=== PATIENT | male | born 1950 | race Caucasian/White ===

== ENCOUNTER 2017-10-20 11:35 | Inpatient (IN) | payer SELFPAY ==
[~2017-10-20 11:35] MED LIST: chlordiazePOXIDE HCL 25 MG CAPSULE PO SCH
[2017-10-20] MEDS ORDERED: FOLIC ACID INJECTION - 1 MG, THIAMINE HCL 100 MG, MULTIVIT INJECTION ADULT 10 ML in SOD... IVPB ONE (13:06)
[2017-10-20 13:17] LABS: BASO % 0.5 % (0-2.0); EOS % 0.1 % (0-4.5); HEMATOCRIT 40.8 % (35.4-49); HEMOGLOBIN 14.2 GM/dL (11.7-16.9); LYMPH % 13.3 % (8-40); MCH 31.5 pg (25.7-33.7); MCHC 34.9 g/dl (32.0-35.9); MEAN CELL VOLUME 90.2 fl (80-96); MEAN PLT VOLUME 7.6 fl (7.5-11.1); MONO % 7.1 % (3.8-10.2); PLATELET COUNT 135 K/MM3 (134-434); RBC 4.52 M/mm3 (4.00-5.60); RDW 13.5 % (11.9-15.9)
[2017-10-20 13:21] LABS: URINE APPEARANCE CLEAR; URINE BILIRUBIN NEGATIVE (<2.0 mg/dL); URINE COLOR LTYELLOW; URINE GLUCOSE (UA) NEGATIVE (NEGATIVE); URINE KETONE TRACE (NEGATIVE); URINE LEUK ESTERASE NEGATIVE (NEGATIVE); URINE NITRITE NEGATIVE (NEGATIVE); URINE PROTEIN NEGATIVE (NEGATIVE); URINE UROBILINOGEN 4.0 E.U/dl mg/dL (0.2-1.0)
--- NOTE | 2017-10-20 13:30 | PDOC ---
History of Present Illness - General Chief Complaint: Alcohol intoxication Stated Complaint: INTOXIC Time Seen by Provider: 10/20/17 11:52 History Source: Patient, Family (daughter), Spouse Exam Limitations: Intoxication - History of Present Illness Initial Comments: 67yo M with PMH of Afib presenting to the ED after being found down by his this morning. His reports that he was down on the ground for at least two and a half hours. Patient does not recall how he fell and there were no witnesses to the event. He reports that he drank 8 beers between 10pm and 2: 30pm. His daughter reports that the patient has displayed intermittent episodes of not acting like himself over the past couple months and is not currently at his baseline. The patient has not taken his home medications for about one month because he does not like the side effects and that they dont do anything for him. His daughter also expressed concerned for the patients alcohol consumption. Patient denies fever, chills, SOB, chest pain, nausea, vomiting, or suicidal ideation. 10/20/17 13:54 Past History - Past Medical History Allergies/Adverse Reactions: Allergies Allergy/AdvReac Type Severity Reaction Status Date / Time No Known Allergies Allergy Verified 10/20/17 11:53 Home Medications: Ambulatory Orders Apixaban [Eliquis -] 5 mg PO DAILY 10/20/17 Metoprolol Succinate 100 mg PO BID 10/20/17 Cardiac Disorders: Yes (A-FIB) COPD: No - Suicide/Smoking/Psychosocial Hx Smoking History: Former smoker Have you smoked in the past 12 months: No If you are a former smoker, when did you quit?: 2016 Information on smoking cessation initiated: No Hx Alcohol Use: Yes Review of Systems - Review of Systems Constitutional: No: Chills, Fever Respiratory: No: Cough, Shortness of Breath Cardiac (ROS): No: Chest Pain ABD/GI: No: Diarrhea, Vomiting *Physical Exam - Vital Signs Last Vital Signs Temp Pulse Resp BP Pulse Ox 98.2 F 127 H 18 132/98 96 10/20/17 11:52 10/20/17 11:52 10/20/17 11:52 10/20/17 11:52 10/20/17 11:52 - Physical Exam General Appearance: Yes: Alcohol on Breath HEENT: positive: EOMI, TAMAR, Pharynx Normal, Lesions (superficial facial abrasions on forehead and above right eye) Neck: positive: Trachea midline, Supple Respiratory/Chest: positive: Lungs Clear, Normal Breath Sounds Cardiovascular: positive: Regular Rhythm, Regular Rate, S1, S2 Gastrointestinal/Abdominal: positive: Normal Bowel Sounds, Soft Extremity: positive: Other (superficial abrasion on knee with some bruising) Integumentary: positive: Normal Color, Dry, Warm Neurologic: positive: negative assembler II-XII NML intact (able to complete [id number] coordination with some difficulty), Motor Strength 5/5. negative: Sensory Deficit ED Treatment Course - LABORATORY CBC & Chemistry Diagram: 10/20/17 13:00 10/20/17 13:00 - ADDITIONAL ORDERS Additional order review: 10/20/17 13:00 RBC 4.52 MCV 90.2 MCHC 34.9 RDW 13.5 MPV 7.6 Neutrophils % 79.0 Lymphocytes % 13.3 Monocytes % 7.1 Eosinophils % 0.1 Basophils % 0.5 Medical Decision Making - Medical Decision Making Assessing patient for altered mental status. History includes fall and intoxication. Patient fell and suffered abrasions on his face, daughter reports that patient is not himself." CT ordered to rule out neurological process. Ordered labs to assess for infection, metabolic abnormality, rule out rhabdomyolysis. 10/20/17 14:10 Vital Signs Temp Pulse Resp BP Pulse Ox 98.2 F 127 H 24 135/87 96 10/20/17 11:52 10/20/17 13:20 10/20/17 13:20 10/20/17 13:20 10/20/17 13:20 EKG shows AFib with RVR 10/20/17 14:48 Patient given home dose of metoprolol for rate control, HR down to [address] head, face does not show evidence of trauma. AST 138, ALT 92 consistent with chronic alcoholism, CK elevated to 733 but not concerning for rhabdomyolosis. Alcohol level elevated, consistent with history. Ammonia normal. Concern for patient not on medications for one month. Recommend admission for rapid Afib, in order to titrate medications and perform ECHO. \\ Laboratory Tests 10/20/17 10/20/17 10/20/17 13:00 13:00 13:00 WBC 7.0 RBC 4.52 Hgb 14.2 Hct 40.8 MCV 90.2 MCH 31.5 MCHC 34.9 RDW 13.5 Plt Count 135 MPV 7.6 Absolute Neuts (auto) 5.5 Neutrophils % 79.0 Lymphocytes % 13.3 Monocytes % 7.1 Eosinophils % 0.1 Basophils % 0.5 Nucleated RBC % 0 Sodium Cancelled 135 L Potassium Cancelled 4.1 Chloride Cancelled 96 L Carbon Dioxide Cancelled 25 Anion Gap Cancelled 14 BUN Cancelled 4 L Creatinine Cancelled 0.6 L Creat Clearance w eGFR Cancelled > 60 Random Glucose Cancelled 72 L Calcium Cancelled 8.3 L Total Bilirubin Cancelled 1.3 H AST Cancelled 138 H ALT Cancelled 92 H Alkaline Phosphatase Cancelled 121 H Ammonia Creatine Kinase 733 H Creatine Kinase Index 2.3 CK-MB (CK-2) 17.20 H Troponin I 0.02 Total Protein Cancelled 6.5 Albumin Cancelled 3.7 Urine Color Urine Appearance Urine pH Ur Specific [place] Urine Protein Urine Glucose (UA) Urine Ketones Urine Blood Urine Nitrite Urine Bilirubin Urine Urobilinogen Ur Leukocyte Esterase Urine WBC (Auto) Urine RBC (Auto) Hyaline Casts Opiates Screen Methadone Screen Barbiturate Screen Phencyclidine Screen Ur Amphetamines Screen MDMA (Ecstasy) Screen Benzodiazepines Screen Cocaine Screen U Marijuana (THC) Screen Alcohol, Quantitative 10/20/17 10/20/17 10/20/17 13:00 13:03 13:06 WBC RBC Hgb Hct MCV MCH MCHC RDW Plt Count MPV Absolute Neuts (auto) Neutrophils % Lymphocytes % Monocytes % Eosinophils % Basophils % Nucleated RBC % Sodium Potassium Chloride Carbon Dioxide Anion Gap BUN Creatinine Creat Clearance w eGFR Random Glucose Calcium Total Bilirubin AST ALT Alkaline Phosphatase Ammonia Cancelled Creatine Kinase Creatine Kinase Index CK-MB (CK-2) Troponin I Total Protein Albumin Urine Color Ltyellow Urine Appearance Clear Urine pH 6.0 Ur Specific [place] 1.005 Urine Protein Negative Urine Glucose (UA) Negative Urine Ketones Trace H Urine Blood 1+ H Urine Nitrite Negative Urine Bilirubin Negative Urine Urobilinogen 4.0 e.u/dl Ur Leukocyte Esterase Negative Urine WBC (Auto) <1 Urine RBC (Auto) 1 Hyaline Casts 3 Opiates Screen Methadone Screen Barbiturate Screen Phencyclidine Screen Ur Amphetamines Screen MDMA (Ecstasy) Screen Benzodiazepines Screen Cocaine Screen U Marijuana (THC) Screen Alcohol, Quantitative 144.54 H* 10/20/17 10/20/17 13:06 14:41 WBC RBC Hgb Hct MCV MCH MCHC RDW Plt Count MPV Absolute Neuts (auto) Neutrophils % Lymphocytes % Monocytes % Eosinophils % Basophils % Nucleated RBC % Sodium Potassium Chloride Carbon Dioxide Anion Gap BUN Creatinine Creat Clearance w eGFR Random Glucose Calcium Total Bilirubin AST ALT Alkaline Phosphatase Ammonia 20.19 Creatine Kinase Creatine Kinase Index CK-MB (CK-2) Troponin I Total Protein Albumin Urine Color Urine Appearance Urine pH Ur Specific [place] Urine Protein Urine Glucose (UA) Urine Ketones Urine Blood Urine Nitrite Urine Bilirubin Urine Urobilinogen Ur Leukocyte Esterase Urine WBC (Auto) Urine RBC (Auto) Hyaline Casts Opiates Screen Negative Methadone Screen Negative Barbiturate Screen Negative Phencyclidine Screen Negative Ur Amphetamines Screen Negative MDMA (Ecstasy) Screen Negative Benzodiazepines Screen Negative Cocaine Screen Negative U Marijuana (THC) Screen Negative Alcohol, Quantitative 10/20/17 15:37 Patient and family amenable to plan for admission. Spoke with admitting internal medicine team. Vital Signs Temperature 98.2 F 10/20/17 11:52 Pulse Rate 116 H 10/20/17 15:50 Respiratory Rate 20 10/20/17 15:50 Blood Pressure 151/98 10/20/17 15:50 O2 Sat by Pulse Oximetry (%) 98 10/20/17 15:51 10/20/17 16:13 *DC/Admit/Observation/Transfer Diagnosis at time of Disposition: Atrial fibrillation with RVR - Discharge Dispostion Condition at time of disposition: Guarded Decision to Admit order: Yes - Referrals - Patient Instructions - Post Discharge Activity
[2017-10-20 13:32] LABS: COCAINE, UR NEGATIVE ng/ml (CUTOFF=300); OPIATES, URI NEGATIVE ng/ml (CUTOFF=300); PHENCYCLIDINE,URINE NEGATIVE ng/ml (CUTOFF=25); URINE AMPHETAMINES NEGATIVE ng/ml (CUTOFF=500); URINE BARBITURATES NEGATIVE ng/ml (CUTOFF=200); URINE BENZODIAZEPINES NEGATIVE ng/ml (CUTOFF=200)
[2017-10-20 13:33] LABS: METHADONE, UR NEGATIVE ng/ml (CUTOFF=300)
[2017-10-20 13:49] LABS: URINE HYALINE CAST 3 /lpf
[2017-10-20] MEDS ORDERED: METOPROLOL TARTRATE 50 MG TABLET (FP) ONE (13:53)
[2017-10-20] MEDS ORDERED: DIPHTH,PERTUSS(ACELL),TET 0.5 ML DISP.SYRIN IM ONE (14:18)
--- NOTE | 2017-10-20 14:22 | PDOC ---
Attending Attestation - Resident Resident Name: Abbey Schmitt - ED Attending Attestation I have performed the following: I have examined & evaluated the patient, The case was reviewed & discussed with the resident, I agree w/resident's findings & plan, Exceptions are as noted - HPI HPI: 10/20/17 14:15 "The patient is a 67-year-old male, with a past medical history of a-fib on metoprolol and apixaban, who presents to the ED via EMS with alcohol intoxication. As per , the patient was found lying on the ground this morning. She believes that he could have been down for about 2.5 hours. Pt has no recollection of falling but states he drank approximately 10 beers between 10PM last night and 2:30AM. Daughter and mother were unable to lift pt from floor and called EMS. The family is concerned about the patients recent excessive drinking, however the patient does not feel like his drinking is an issue. Pt also states that he has not been taking any of his medications because he has been having side effects like bruising and GI upset. The patient denies any fever, chills, nausea, vomiting, diarrhea, or abdominal pain. Denies LUQUE/neck pain. Denies any chest pain or shortness of breath. Allergies: NKA " - Physicial Exam PE: 10/20/17 14:18 "GENERAL: Awake, alert, and fully oriented, in no acute distress. HEAD: + abrasions to forehead and nose with no lacerations EYES: PERRLA, EOMI, sclera anicteric, conjunctiva clear ENT: Auricles normal inspection, hearing grossly normal, nares patent, oropharynx clear without exudates. Moist mucosa NECK: Nontender, no stepoffs, Normal ROM, supple, no lymphadenopathy, JVD, or masses LUNGS: Breath sounds equal, clear to auscultation bilaterally. No wheezes, and no crackles HEART: Regular rate and rhythm, normal S1 and S2, no murmurs, rubs or gallops ABDOMEN: Soft, nontender, normoactive bowel sounds. No guarding, no rebound. No masses EXTREMITIES: + abrasions to b/l knees, no bony tenderness, Normal range of motion, no edema. No clubbing or cyanosis. No cords, erythema, or tenderness NEUROLOGICAL: Cranial nerves II through XII intact. 5/5 strength and sensation in all extremities, Normal speech, normal gait, normal cerebellar function SKIN: Warm, Dry, normal turgor, no rashes or lesions noted. " - Medical Decision Making 10/20/17 14:22 67 M who presents to ED after falling while intoxicated. Pt also found to be tachycardic and in rapid afib, likely 2/2 medication noncompliance. Will evaluate for infectious process with CXR and UA, as well as metabolic derangement. - Labs - UA, CXR - CT head/facial bones/c-spine - Tdap 10/20/17 15:50 CTs unremarkable Pt given home dose metoprolol 100mg PO with improvement in HR to 110s. Additional metoprolol 5mg IV ordered Will admit for further rate control and titration of metoprolol, as well as resumption of anticoagulation and possible echo to evaluate for thrombus Pt admitted to tele obs
[2017-10-20 14:50] LABS: ALBUMIN 3.7 g/dl (3.4-5.0); ANION GAP 14 (8-16); BILIRUBIN,TOTAL 1.3 mg/dL (0.2-1.0); BLOOD UREA NITROGEN 4 mg/dL (7-18); CALCIUM 8.3 mg/dL (8.5-10.1); CHLORIDE 96 mmol/L (98-107); CO2 25 mmol/L (21-32); CREATININE 0.6 mg/dL (0.7-1.3); GLUCOSE,RANDOM 72 mg/dL (74-106); POTASSIUM 4.1 mmol/L (3.5-5.1); SGOT/AST 138 U/L (15-37); SGPT/ALT 92 U/L (12-78); SODIUM 135 mmol/L (136-145); TOT PROT 6.5 g/dl (6.4-8.2)
[2017-10-20 14:52] LABS: ALK PHOS 121 U/L (45-117)
[2017-10-20] MEDS ORDERED: METOPROLOL TARTRATE 5 MG/5 ML VIAL IVPUSH ONE (15:42)
[2017-10-20] MEDS ORDERED: METOPROLOL TARTRATE 5 MG/5 ML VIAL ONE (15:46)
--- NOTE | 2017-10-20 18:27 | HP ---
CHIEF COMPLAINT: "intoxication" PCP: Dr. Salazar HISTORY OF PRESENT ILLNESS: Patient is a 67 y/o male with a past medical history of afib, HLD, and HTN, who presents with intoxication. Patient states he was home alone for a few days and was drinking a lot of alcohol. This morning his found him down on the floor. Per patient he thinks he was walking backwards from the tv and fell on to the carpet where he got some friction kramer and bruises. Patient was inebriated at the time. He reports he has stopped taking his medications for the last month because he reports he did not like the side effects. Patient denies any chest pain, headache, SOB, blurry vision, dizziness. Patient has no complaints at this time. ER course was notable for: (1)EKG (2) (3) PAST MEDICAL HISTORY: afib, HLD PAST SURGICAL HISTORY: NA Social History: Smoking: no Alcohol: 5 beers a day CAGE (+1) Drugs: no Family History: Allergies No Known Allergies Allergy (Verified 10/20/17 11:53) HOME MEDICATIONS: Home Medications Medication Instructions Recorded Apixaban [Eliquis -] 5 mg PO DAILY 10/20/17 Metoprolol Succinate 100 mg PO BID 10/20/17 REVIEW OF SYSTEMS CONSTITUTIONAL: Absent: fever, chills, diaphoresis, generalized weakness CARDIOVASCULAR: irregular heart rate Absent: chest pain, syncope, palpitations, lightheadedness, peripheral edema RESPIRATORY: Absent: cough, shortness of breath, dyspnea with exertion, GASTROINTESTINAL: Absent: abdominal pain, abdominal distension, nausea, vomiting, diarrhea, constipation GENITOURINARY: Absent: dysuria, frequency, MUSCULOSKELETAL: Absent: myalgia, arthralgia back pain, neck pain SKIN: ecchymoses Absent: rash, itching, pallor HEMATOLOGIC/IMMUNOLOGIC: easy bruising Absent: easy bleeding, lymphadenopathy, frequent infections ENDOCRINE: Absent: unexplained weight gain, unexplained weight loss NEUROLOGIC: Absent: headache, focal weakness or paresthesias, dizziness, unsteady gait, seizure, mental status changes PSYCHIATRIC: Absent: anxiety, depression PHYSICAL EXAMINATION Vital Signs - 24 hr 10/20/17 10/20/17 10/20/17 11:52 13:20 15:50 Temperature 98.2 F Pulse Rate 127 H Pulse Rate [ 127 H 116 H Apical] Respiratory 18 24 20 Rate Blood Pressure 132/98 151/98 Blood Pressure 135/87 151/98 [Left Arm] O2 Sat by Pulse 96 96 97 Oximetry (%) 10/20/17 15:51 Temperature Pulse Rate Pulse Rate [ Apical] Respiratory Rate Blood Pressure Blood Pressure [Left Arm] O2 Sat by Pulse 98 Oximetry (%) GENERAL: Awake, alert, and fully oriented, inebriated HEAD:Eccymoses to lateral side of left face EYES: Pupils equal, round and reactive to light, extraocular movements intact, sclera anicteric, conjunctiva clear. EARS, NOSE, THROAT: Ears normal, nares patent, oropharynx clear without exudates. Moist mucous membranes. NECK: Normal range of motion LUNGS: Breath sounds equal, clear to auscultation bilaterally HEART: irregularly irregular rhytm, tachycardic ABDOMEN: Soft, nontender, not distended, normoactive bowel sounds MUSCULOSKELETAL: Normal range of motion at all joints. UPPER EXTREMITIES: 2+ pulses, warm, well-perfused. No cyanosis. No clubbing. No peripheral edema. LOWER EXTREMITIES: 2+ pulses, warm, well-perfused. No calf tenderness. No peripheral edema. NEUROLOGICAL: Cranial nerves II-XII intact. Normal speech. PSYCHIATRIC: Cooperative. Good eye contact. Inebriated SKIN: Warm, dry, normal turgor, large 5x5 cm eccymoses to left knee, few eccymoses 1x1 cm to left arm Laboratory Results - last 24 hr 10/20/17 10/20/17 10/20/17 13:00 13:00 13:00 WBC 7.0 RBC 4.52 Hgb 14.2 Hct 40.8 MCV 90.2 MCH 31.5 MCHC 34.9 RDW 13.5 Plt Count 135 MPV 7.6 Absolute Neuts (auto) 5.5 Neutrophils % 79.0 Lymphocytes % 13.3 Monocytes % 7.1 Eosinophils % 0.1 Basophils % 0.5 Nucleated RBC % 0 Sodium Cancelled 135 L Potassium Cancelled 4.1 Chloride Cancelled 96 L Carbon Dioxide Cancelled 25 Anion Gap Cancelled 14 BUN Cancelled 4 L Creatinine Cancelled 0.6 L Creat Clearance w eGFR Cancelled > 60 Random Glucose Cancelled 72 L Calcium Cancelled 8.3 L Total Bilirubin Cancelled 1.3 H AST Cancelled 138 H ALT Cancelled 92 H Alkaline Phosphatase Cancelled 121 H Ammonia Creatine Kinase 733 H Creatine Kinase Index 2.3 CK-MB (CK-2) 17.20 H Troponin I 0.02 Total Protein Cancelled 6.5 Albumin Cancelled 3.7 Urine Color Urine Appearance Urine pH Ur Specific [place] Urine Protein Urine Glucose (UA) Urine Ketones Urine Blood Urine Nitrite Urine Bilirubin Urine Urobilinogen Ur Leukocyte Esterase Urine WBC (Auto) Urine RBC (Auto) Hyaline Casts Opiates Screen Methadone Screen Barbiturate Screen Phencyclidine Screen Ur Amphetamines Screen MDMA (Ecstasy) Screen Benzodiazepines Screen Cocaine Screen U Marijuana (THC) Screen Alcohol, Quantitative 10/20/17 10/20/17 10/20/17 13:00 13:03 13:06 WBC RBC Hgb Hct MCV MCH MCHC RDW Plt Count MPV Absolute Neuts (auto) Neutrophils % Lymphocytes % Monocytes % Eosinophils % Basophils % Nucleated RBC % Sodium Potassium Chloride Carbon Dioxide Anion Gap BUN Creatinine Creat Clearance w eGFR Random Glucose Calcium Total Bilirubin AST ALT Alkaline Phosphatase Ammonia Cancelled Creatine Kinase Creatine Kinase Index CK-MB (CK-2) Troponin I Total Protein Albumin Urine Color Ltyellow Urine Appearance Clear Urine pH 6.0 Ur Specific [place] 1.005 Urine Protein Negative Urine Glucose (UA) Negative Urine Ketones Trace H Urine Blood 1+ H Urine Nitrite Negative Urine Bilirubin Negative Urine Urobilinogen 4.0 e.u/dl Ur Leukocyte Esterase Negative Urine WBC (Auto) <1 Urine RBC (Auto) 1 Hyaline Casts 3 Opiates Screen Methadone Screen Barbiturate Screen Phencyclidine Screen Ur Amphetamines Screen MDMA (Ecstasy) Screen Benzodiazepines Screen Cocaine Screen U Marijuana (THC) Screen Alcohol, Quantitative 144.54 H* 10/20/17 10/20/17 13:06 14:41 WBC RBC Hgb Hct MCV MCH MCHC RDW Plt Count MPV Absolute Neuts (auto) Neutrophils % Lymphocytes % Monocytes % Eosinophils % Basophils % Nucleated RBC % Sodium Potassium Chloride Carbon Dioxide Anion Gap BUN Creatinine Creat Clearance w eGFR Random Glucose Calcium Total Bilirubin AST ALT Alkaline Phosphatase Ammonia 20.19 Creatine Kinase Creatine Kinase Index CK-MB (CK-2) Troponin I Total Protein Albumin Urine Color Urine Appearance Urine pH Ur Specific [place] Urine Protein Urine Glucose (UA) Urine Ketones Urine Blood Urine Nitrite Urine Bilirubin Urine Urobilinogen Ur Leukocyte Esterase Urine WBC (Auto) Urine RBC (Auto) Hyaline Casts Opiates Screen Negative Methadone Screen Negative Barbiturate Screen Negative Phencyclidine Screen Negative Ur Amphetamines Screen Negative MDMA (Ecstasy) Screen Negative Benzodiazepines Screen Negative Cocaine Screen Negative U Marijuana (THC) Screen Negative Alcohol, Quantitative ASSESSMENT/PLAN: Patient is a 67 y/o male with a past medical history of afib, HLD, and HTN, who presents with intoxication and subsequent afib with RVR. #Afib with RVR -Continue home medications of atenolol and apixaban -Continue to monitor on tele, monitor HR and BP -f/u cardio consult -CXR: possible cardiomegaly -f/u echo - f/u repeat troponin #Intoxication -neuro checks -detox protocol -continue fluids -CT head & facial bones: no acute pathology, no gross fractures - alcohol level : 144 #Elevated liver enzymes -AST: 138, ALT: 92, continue to trend -CK: 733 #HLD -continue home medications Visit type - Emergency Visit Emergency Visit: Yes ED Registration Date: 10/20/17 Care time: The patient presented to the Emergency Department on the above date and was hospitalized for further evaluation of their emergent condition. - New Patient This patient is new to me today: Yes Date on this admission: 10/20/17 - Critical Care Critical Care patient: No Hospitalist Screening - Colonoscopy Questionnaire Colonoscopy Questionnaire: Colonoscopy Questionnaire - Patient: 50 - 75 years old and never had a screening colonoscopy: Unknown History of colon or rectal polyps, or CA: Unknown History of IBD, Crohn's disease or UC: Unknown History of abdominal radiation therapy as a child: Unknown - Relative: 1 with colon or rectal CA, or polyps at age 60 or younger: Unknown Colon or rectal CA diagnosed at age 45 or younger: Unknown Multiple relatives with colon or rectal CA: Unknown - Outcome: Screening Result: Negative Screen
[2017-10-20] MEDS ORDERED: SODIUM CHLORIDE 1,000 ML IV SCH (18:30)
[2017-10-20] MEDS ORDERED: chlordiazePOXIDE HCL 25 MG CAPSULE PO PRN (18:38)
--- NOTE | 2017-10-20 18:48 | PN ---
Teaching Attending Note Name of Resident: Lisa Hatfield ATTENDING PHYSICIAN STATEMENT I saw and evaluated the patient. I reviewed the resident's note and discussed the case with the resident. I agree with the resident's findings and plan as documented. SUBJECTIVE: Patient is a 67 y/o male with a past medical history of afib, HLD, and HTN, who presents with alcohol intoxication. OBJECTIVE: Vital Signs Temperature 98.2 F 10/20/17 11:52 Pulse Rate 107 H 10/20/17 18:15 Respiratory Rate 18 10/20/17 18:15 Blood Pressure 117/78 10/20/17 18:15 O2 Sat by Pulse Oximetry (%) 96 10/20/17 18:15 GENERAL: Awake, alert, and fully oriented, in no acute distress. Patient appears disheveled and slightly slurs his words. HEAD: Normal with no signs of trauma. EYES: Pupils equal, round and reactive to light, extraocular movements intact, sclera anicteric, conjunctiva clear. No lid lag. EARS, NOSE, THROAT: oropharynx clear without exudates. Moist mucous membranes. LUNGS: Breath sounds equal, clear to auscultation bilaterally. No wheezes, and no crackles. No accessory muscle use. HEART: Irregularly irregular with rate of 121, normal S1 and S2 without murmur, rub or gallop. ABDOMEN: Soft, nontender, not distended, normoactive bowel sounds, no guarding, no rebound, no masses. No hepatomegaly or splenomegaly. LOWER EXTREMITIES: 2+ pulses, warm, well-perfused. No calf tenderness. No peripheral edema. NEUROLOGICAL: Cranial nerves II-X intact. Slurred speech. PSYCHIATRIC: Cooperative. Good eye contact. Appropriate mood and affect. SKIN: Warm, dry, normal turgor, no rashes or lesions noted, normal capillary refill. Several ecchimoses and abrasions seen over his face, arms and legs. ABCD WBC 7.0 K/mm3 (4.0-10.0) 10/20/17 13:00 RBC 4.52 M/mm3 (4.00-5.60) 10/20/17 13:00 Hgb 14.2 GM/dL (11.7-16.9) 10/20/17 13:00 Hct 40.8 % (35.4-49) 10/20/17 13:00 MCV 90.2 fl (80-96) 10/20/17 13:00 MCHC 34.9 g/dl (32.0-35.9) 10/20/17 13:00 RDW 13.5 % (11.9-15.9) 10/20/17 13:00 Plt Count 135 K/MM3 (134-434) 10/20/17 13:00 MPV 7.6 fl (7.5-11.1) 10/20/17 13:00 CMP Sodium 135 mmol/L (136-145) L 10/20/17 13:00 Potassium 4.1 mmol/L (3.5-5.1) 10/20/17 13:00 Chloride 96 mmol/L (98-107) L 10/20/17 13:00 Carbon Dioxide 25 mmol/L (21-32) 10/20/17 13:00 Anion Gap 14 (8-16) 10/20/17 13:00 BUN 4 mg/dL (7-18) L 10/20/17 13:00 Creatinine 0.6 mg/dL (0.7-1.3) L 10/20/17 13:00 Creat Clearance w eGFR > 60 (>60) 10/20/17 13:00 Random Glucose 72 mg/dL (74-106) L 10/20/17 13:00 Calcium 8.3 mg/dL (8.5-10.1) L 10/20/17 13:00 Total Bilirubin 1.3 mg/dL (0.2-1.0) H 10/20/17 13:00 AST 138 U/L (15-37) H 10/20/17 13:00 ALT 92 U/L (12-78) H 10/20/17 13:00 Alkaline Phosphatase 121 U/L (45-117) H 10/20/17 13:00 Total Protein 6.5 g/dl (6.4-8.2) 10/20/17 13:00 Albumin 3.7 g/dl (3.4-5.0) 10/20/17 13:00 CARDIAC ENZYMES Creatine Kinase 733 IU/L (39-308) H 10/20/17 13:00 Troponin I 0.02 ng/ml (0.00-0.05) 10/20/17 13:00 Current Medications Generic Name Dose Route Start Last Admin Trade Name Freq PRN Reason Stop Dose Admin Chlordiazepoxide HCl 50 mg 10/20/17 05:00 Librium - PO 10/20/17 23:01 [id number] CHERYL Chlordiazepoxide HCl 25 mg 10/21/17 05:00 Librium - PO 10/21/17 23:01 [id number] CHERYL Chlordiazepoxide HCl 15 mg 10/22/17 05:00 Librium - PO 10/22/17 23:01 [id number] CHERYL Chlordiazepoxide HCl 25 mg 10/20/17 18:38 Librium - PO 10/23/17 18:37 Q4H PRN WITHDRAWAL(CONT SUBST) Folic Acid 1 mg/ Thiamine HCl 1,000 mls @ 125 mls/hr 10/20/17 13:06 10/20/17 13:35 100 mg/ Multivitamins/Minerals IVPB 10/20/17 21:05 125 mls/hr 10 ml/ Sodium Chloride ONCE ONE Administration Sodium Chloride 1,000 mls @ 100 mls/hr 10/20/17 18:30 Normal Saline - IV 10/21/17 04:29 [facility] Home Medications Medication Instructions Recorded Apixaban [Eliquis -] 5 mg PO DAILY 10/20/17 Metoprolol Succinate 100 mg PO BID 10/20/17 EKG: Afib with RVR rate of 121, RAD, septal infarct age undetermined, T-wave inversion ASSESSMENT AND PLAN: The patient is a 67 yo m PMH afib, ETOH abuse admitted for afib w/ RVR #Afib with RVR likely 2/2 medication nonadherence continue Lopressor and eliquis , ordered echo, trend trop, cardio consult; [facility] admit tele, ekg in am #ETOH abuse monitor of DT, Librium protocol , s/p banana bag in ED, continue with IVF, continue Folic acid , thiamine continue #Prophy :heparin SQ 5k #Dispo:admit tele
[2017-10-20] MEDS: chlordiazePOXIDE HCL 25 MG CAPSULE PO PRN (20:32)
--- NOTE | 2017-10-21 00:15 | HP ---
CHIEF COMPLAINT: Intoxication PCP: Dr. Nguyen ([facility]) Dr. Jhaveri (cardiology, [facility]) HISTORY OF PRESENT ILLNESS: The patient is a 67 yo m w/ PMH afib, ETOH abuse who was brought into the ED by his after being found on the floor in his house. Patient had increased his drinking recently after his left town temporarily. On admission, patient found to be in rapid Afib w/ RVR. Patient state she has not taken his medications in a month. Patient denies, CP, SOB, fevers, chills, abdominal pain. Recent Travel: none PAST MEDICAL HISTORY: see HPI PAST SURGICAL HISTORY: Social History: Smoking: denies Alcohol: drinks 5 beers per day Drugs: denies Family History: non- contributory Allergies No Known Allergies Allergy (Verified 10/20/17 11:53) HOME MEDICATIONS: Home Medications Medication Instructions Recorded Apixaban [Eliquis -] 5 mg PO DAILY 10/20/17 Metoprolol Succinate 100 mg PO BID 10/20/17 REVIEW OF SYSTEMS CONSTITUTIONAL: Absent: fever, chills, diaphoresis, generalized weakness, malaise, loss of appetite, weight change HEENT: Absent: rhinorrhea, nasal congestion, throat pain, throat swelling, difficulty swallowing, mouth swelling, ear pain, eye pain, visual changes CARDIOVASCULAR: Absent: chest pain, syncope, palpitations, irregular heart rate, lightheadedness , peripheral edema RESPIRATORY: Absent: cough, shortness of breath, dyspnea with exertion, orthopnea, wheezing, stridor, hemoptysis GASTROINTESTINAL: Absent: abdominal pain, abdominal distension, nausea, vomiting, diarrhea, constipation, melena, hematochezia GENITOURINARY: Absent: dysuria, frequency, urgency, hesitancy, hematuria, flank pain, genital pain MUSCULOSKELETAL: Absent: myalgia, arthralgia, joint swelling, back pain, neck pain SKIN: Absent: rash, itching, pallor HEMATOLOGIC/IMMUNOLOGIC: Absent: easy bleeding, easy bruising, lymphadenopathy, frequent infections ENDOCRINE: Absent: unexplained weight gain, unexplained weight loss, heat intolerance, cold intolerance NEUROLOGIC: Absent: headache, focal weakness or paresthesias, dizziness, unsteady gait, seizure, mental status changes, bladder or bowel incontinence PSYCHIATRIC: Absent: anxiety, depression, suicidal or homicidal ideation, hallucinations. PHYSICAL EXAMINATION Vital Signs - 24 hr 07/08/0410/20/17 10/20/17 11:52 13:20 15:50 Temperature 98.2 F Pulse Rate 127 H Pulse Rate [ 127 H 116 H Apical] Respiratory 18 24 20 Rate Blood Pressure 132/98 151/98 Blood Pressure 135/87 151/98 [Left Arm] O2 Sat by Pulse 96 96 97 Oximetry (%) 10/20/17 10/20/17 10/20/17 15:51 18:15 18:29 Temperature 98.4 F Pulse Rate 114 H Pulse Rate [ 107 H Apical] Respiratory 18 18 Rate Blood Pressure 132/90 Blood Pressure 117/78 [Left Arm] O2 Sat by Pulse 98 96 96 Oximetry (%) 10/20/17 10/20/17 18:50 18:59 Temperature 98.4 F Pulse Rate 114 H Pulse Rate [ Apical] Respiratory 18 18 Rate Blood Pressure 132/90 Blood Pressure [Left Arm] O2 Sat by Pulse 96 Oximetry (%) GENERAL: Awake, alert, and fully oriented, in no acute distress. Patient appears disheveled and slightly slurs his words. HEAD: Normal with no signs of trauma. EYES: Pupils equal, round and reactive to light, extraocular movements intact, sclera anicteric, conjunctiva clear. No lid lag. EARS, NOSE, THROAT: oropharynx clear without exudates. Moist mucous membranes. LUNGS: Breath sounds equal, clear to auscultation bilaterally. No wheezes, and no crackles. No accessory muscle use. HEART: Regular rate and rhythm, normal S1 and S2 without murmur, rub or gallop. ABDOMEN: Soft, nontender, not distended, normoactive bowel sounds, no guarding, no rebound, no masses. No hepatomegaly or splenomegaly. LOWER EXTREMITIES: 2+ pulses, warm, well-perfused. No calf tenderness. No peripheral edema. NEUROLOGICAL: Cranial nerves II-X intact. Slurred speech. PSYCHIATRIC: Cooperative. Good eye contact. Appropriate mood and affect. SKIN: Warm, dry, normal turgor, no rashes or lesions noted, normal capillary refill. Several ecchimoses and abrasions seen over his face, arms and legs. Laboratory Results - last 24 hr 10/20/17 10/20/17 10/20/17 13:00 13:00 13:00 WBC 7.0 RBC 4.52 Hgb 14.2 Hct 40.8 MCV 90.2 MCH 31.5 MCHC 34.9 RDW 13.5 Plt Count 135 MPV 7.6 Absolute Neuts (auto) 5.5 Neutrophils % 79.0 Lymphocytes % 13.3 Monocytes % 7.1 Eosinophils % 0.1 Basophils % 0.5 Nucleated RBC % 0 Sodium Cancelled 135 L Potassium Cancelled 4.1 Chloride Cancelled 96 L Carbon Dioxide Cancelled 25 Anion Gap Cancelled 14 BUN Cancelled 4 L Creatinine Cancelled 0.6 L Creat Clearance w eGFR Cancelled > 60 Random Glucose Cancelled 72 L Calcium Cancelled 8.3 L Total Bilirubin Cancelled 1.3 H AST Cancelled 138 H ALT Cancelled 92 H Alkaline Phosphatase Cancelled 121 H Ammonia Creatine Kinase 733 H Creatine Kinase Index 2.3 CK-MB (CK-2) 17.20 H Troponin I 0.02 Total Protein Cancelled 6.5 Albumin Cancelled 3.7 Urine Color Urine Appearance Urine pH Ur Specific [place] Urine Protein Urine Glucose (UA) Urine Ketones Urine Blood Urine Nitrite Urine Bilirubin Urine Urobilinogen Ur Leukocyte Esterase Urine WBC (Auto) Urine RBC (Auto) Hyaline Casts Opiates Screen Methadone Screen Barbiturate Screen Phencyclidine Screen Ur Amphetamines Screen MDMA (Ecstasy) Screen Benzodiazepines Screen Cocaine Screen U Marijuana (THC) Screen Alcohol, Quantitative 10/20/17 10/20/17 10/20/17 13:00 13:03 13:06 WBC RBC Hgb Hct MCV MCH MCHC RDW Plt Count MPV Absolute Neuts (auto) Neutrophils % Lymphocytes % Monocytes % Eosinophils % Basophils % Nucleated RBC % Sodium Potassium Chloride Carbon Dioxide Anion Gap BUN Creatinine Creat Clearance w eGFR Random Glucose Calcium Total Bilirubin AST ALT Alkaline Phosphatase Ammonia Cancelled Creatine Kinase Creatine Kinase Index CK-MB (CK-2) Troponin I Total Protein Albumin Urine Color Ltyellow Urine Appearance Clear Urine pH 6.0 Ur Specific [place] 1.005 Urine Protein Negative Urine Glucose (UA) Negative Urine Ketones Trace H Urine Blood 1+ H Urine Nitrite Negative Urine Bilirubin Negative Urine Urobilinogen 4.0 e.u/dl Ur Leukocyte Esterase Negative Urine WBC (Auto) <1 Urine RBC (Auto) 1 Hyaline Casts 3 Opiates Screen Methadone Screen Barbiturate Screen Phencyclidine Screen Ur Amphetamines Screen MDMA (Ecstasy) Screen Benzodiazepines Screen Cocaine Screen U Marijuana (THC) Screen Alcohol, Quantitative 144.54 H* 10/20/17 10/20/17 10/20/17 13:06 14:41 19:00 WBC RBC Hgb Hct MCV MCH MCHC RDW Plt Count MPV Absolute Neuts (auto) Neutrophils % Lymphocytes % Monocytes % Eosinophils % Basophils % Nucleated RBC % Sodium Potassium Chloride Carbon Dioxide Anion Gap BUN Creatinine Creat Clearance w eGFR Random Glucose Calcium Total Bilirubin AST ALT Alkaline Phosphatase Ammonia 20.19 Creatine Kinase 915 H Creatine Kinase Index 2.1 CK-MB (CK-2) 19.24 H Troponin I 0.02 Total Protein Albumin Urine Color Urine Appearance Urine pH Ur Specific [place] Urine Protein Urine Glucose (UA) Urine Ketones Urine Blood Urine Nitrite Urine Bilirubin Urine Urobilinogen Ur Leukocyte Esterase Urine WBC (Auto) Urine RBC (Auto) Hyaline Casts Opiates Screen Negative Methadone Screen Negative Barbiturate Screen Negative Phencyclidine Screen Negative Ur Amphetamines Screen Negative MDMA (Ecstasy) Screen Negative Benzodiazepines Screen Negative Cocaine Screen Negative U Marijuana (THC) Screen Negative Alcohol, Quantitative ASSESSMENT/PLAN: The patient is a 67 yo m PMH afib, ETOH abuse admitted for afib w/ RVR #Afib with RVR likely 2/2 medication nonadherence -resume home metoprolol 100mg BID -resume home eliquis 5mg daily -echo in AM -rpt trop -cardio consult; [facility] -admit tele -rpt EKG in AM #ETOH abuse -Monitor for signs of DT -Librium protocol -s/p banana bag in ED -NS @ 100 x 1 bag #FEN -NS @ 100 x 1 bag -lytes WNL, replete PRN -sodium controlled diet #Prophy -heparin SQ 5k units TID #Dispo -admit tele Visit type - Emergency Visit Emergency Visit: Yes ED Registration Date: 10/20/17 Care time: The patient presented to the Emergency Department on the above date and was hospitalized for further evaluation of their emergent condition. - New Patient This patient is new to me today: Yes Date on this admission: 10/21/17 - Critical Care Critical Care patient: No
[2017-10-21] MEDS: chlordiazePOXIDE HCL 25 MG CAPSULE PO PRN (00:39)
[2017-10-21] MEDS ORDERED: chlordiazePOXIDE HCL 25 MG CAPSULE PO SCH (05:00)
[2017-10-21] MEDS: chlordiazePOXIDE HCL 25 MG CAPSULE PO SCH ×4 (05:38→22:39)
[2017-10-21] MEDS ORDERED: HEPARIN NA (PORCINE) 5,000 UNITS/ML 1ML VIAL SQ SCH (06:00)
[2017-10-21 06:17] LABS: HEMATOCRIT 42.1 % (35.4-49); HEMOGLOBIN 14.5 GM/dL (11.7-16.9); MCH 31.4 pg (25.7-33.7); MCHC 34.4 g/dl (32.0-35.9); MEAN CELL VOLUME 91.2 fl (80-96); PLATELET COUNT 129 K/MM3 (134-434); RBC 4.62 M/mm3 (4.00-5.60); RDW 13.8 % (11.9-15.9); WHITE BLOOD COUNT 7.6 K/mm3 (4.0-10.0)
[2017-10-21 06:36] LABS: PROTHROMBIN TIME (PATIENT) 11.3 SEC (9.7-13.0)
[2017-10-21 06:39] LABS: ACTIVATED PTT 32.1 SECONDS (25.2-36.5)
[2017-10-21 06:52] LABS: ALBUMIN 3.1 g/dl (3.4-5.0); ANION GAP 7 (8-16); BLOOD UREA NITROGEN 9 mg/dL (7-18); CALCIUM 7.9 mg/dL (8.5-10.1); CHLORIDE 104 mmol/L (98-107); CO2 28 mmol/L (21-32); MAGNESIUM 1.6 mg/dL (1.8-2.4); POTASSIUM 3.4 mmol/L (3.5-5.1); SODIUM 139 mmol/L (136-145)
[2017-10-21 06:57] LABS: ALK PHOS 118 U/L (45-117); BILIRUBIN,TOTAL 1.3 mg/dL (0.2-1.0); CREATININE 0.5 mg/dL (0.7-1.3); GLUCOSE,RANDOM 97 mg/dL (74-106); PHOSPHOROUS 2.5 mg/dL (2.5-4.9); SGOT/AST 115 U/L (15-37); SGPT/ALT 78 U/L (12-78); TOT PROT 5.9 g/dl (6.4-8.2)
[2017-10-21] MEDS ORDERED: POTASSIUM CHLORIDE TABS 20 MEQ TABLET.ER (FP) PO ONE (09:42)
[2017-10-21] MEDS ORDERED: MAGNESIUM OXIDE 400 MG TABLET (FP) PO ONE (09:43)
--- NOTE | 2017-10-21 10:13 | PN ---
Physical Exam: SUBJECTIVE: Patient is a 67 y/o male with a past medical history of afib, HLD, and HTN, who presents with intoxication. Patient received two PO doses of Librium last night with no over night acute events. Patient had no complaints this morning and denied any shortness of breath or heart palpitations. OBJECTIVE: Vital Signs Period Temp Pulse Resp BP Sys/Mae Pulse Ox Last 24 Hr 98.2 F-98.6 F 107-127 16-24 117-151/78-98 96-98 GENERAL: Awake, alert, and fully oriented, inebriated HEAD:Eccymoses to lateral side of left face and under right eye EYES: Pupils equal, round and reactive to light, extraocular movements intact LUNGS: Breath sounds equal, clear to auscultation bilaterally HEART: irregularly irregular rhytm ABDOMEN: Soft, nontender, not distended, normoactive bowel sounds MUSCULOSKELETAL: Normal range of motion at all joints. NEUROLOGICAL: Cranial nerves II-XII intact. Normal speech. SKIN: Warm, dry, normal turgor, large 5x5 cm eccymoses to left knee, few eccymoses 1x1 cm to left arm Laboratory Results - last 24 hr 10/20/17 10/20/17 10/20/17 13:00 13:00 13:00 WBC 7.0 RBC 4.52 Hgb 14.2 Hct 40.8 MCV 90.2 MCH 31.5 MCHC 34.9 RDW 13.5 Plt Count 135 MPV 7.6 Absolute Neuts (auto) 5.5 Neutrophils % 79.0 Lymphocytes % 13.3 Monocytes % 7.1 Eosinophils % 0.1 Basophils % 0.5 Nucleated RBC % 0 PT with INR INR PTT (Actin FS) Sodium Cancelled 135 L Potassium Cancelled 4.1 Chloride Cancelled 96 L Carbon Dioxide Cancelled 25 Anion Gap Cancelled 14 BUN Cancelled 4 L Creatinine Cancelled 0.6 L Creat Clearance w eGFR Cancelled > 60 Random Glucose Cancelled 72 L Calcium Cancelled 8.3 L Phosphorus Magnesium Total Bilirubin Cancelled 1.3 H AST Cancelled 138 H ALT Cancelled 92 H Alkaline Phosphatase Cancelled 121 H Ammonia Creatine Kinase 733 H Creatine Kinase Index 2.3 CK-MB (CK-2) 17.20 H Troponin I 0.02 Total Protein Cancelled 6.5 Albumin Cancelled 3.7 Urine Color Urine Appearance Urine pH Ur Specific [place] Urine Protein Urine Glucose (UA) Urine Ketones Urine Blood Urine Nitrite Urine Bilirubin Urine Urobilinogen Ur Leukocyte Esterase Urine WBC (Auto) Urine RBC (Auto) Hyaline Casts Opiates Screen Methadone Screen Barbiturate Screen Phencyclidine Screen Ur Amphetamines Screen MDMA (Ecstasy) Screen Benzodiazepines Screen Cocaine Screen U Marijuana (THC) Screen Alcohol, Quantitative 10/20/17 10/20/17 10/20/17 13:00 13:03 13:06 WBC RBC Hgb Hct MCV MCH MCHC RDW Plt Count MPV Absolute Neuts (auto) Neutrophils % Lymphocytes % Monocytes % Eosinophils % Basophils % Nucleated RBC % PT with INR INR PTT (Actin FS) Sodium Potassium Chloride Carbon Dioxide Anion Gap BUN Creatinine Creat Clearance w eGFR Random Glucose Calcium Phosphorus Magnesium Total Bilirubin AST ALT Alkaline Phosphatase Ammonia Cancelled Creatine Kinase Creatine Kinase Index CK-MB (CK-2) Troponin I Total Protein Albumin Urine Color Ltyellow Urine Appearance Clear Urine pH 6.0 Ur Specific [place] 1.005 Urine Protein Negative Urine Glucose (UA) Negative Urine Ketones Trace H Urine Blood 1+ H Urine Nitrite Negative Urine Bilirubin Negative Urine Urobilinogen 4.0 e.u/dl Ur Leukocyte Esterase Negative Urine WBC (Auto) <1 Urine RBC (Auto) 1 Hyaline Casts 3 Opiates Screen Methadone Screen Barbiturate Screen Phencyclidine Screen Ur Amphetamines Screen MDMA (Ecstasy) Screen Benzodiazepines Screen Cocaine Screen U Marijuana (THC) Screen Alcohol, Quantitative 144.54 H* 10/20/17 10/20/17 10/20/17 13:06 14:41 19:00 WBC RBC Hgb Hct MCV MCH MCHC RDW Plt Count MPV Absolute Neuts (auto) Neutrophils % Lymphocytes % Monocytes % Eosinophils % Basophils % Nucleated RBC % PT with INR INR PTT (Actin FS) Sodium Potassium Chloride Carbon Dioxide Anion Gap BUN Creatinine Creat Clearance w eGFR Random Glucose Calcium Phosphorus Magnesium Total Bilirubin AST ALT Alkaline Phosphatase Ammonia 20.19 Creatine Kinase 915 H Creatine Kinase Index 2.1 CK-MB (CK-2) 19.24 H Troponin I 0.02 Total Protein Albumin Urine Color Urine Appearance Urine pH Ur Specific [place] Urine Protein Urine Glucose (UA) Urine Ketones Urine Blood Urine Nitrite Urine Bilirubin Urine Urobilinogen Ur Leukocyte Esterase Urine WBC (Auto) Urine RBC (Auto) Hyaline Casts Opiates Screen Negative Methadone Screen Negative Barbiturate Screen Negative Phencyclidine Screen Negative Ur Amphetamines Screen Negative MDMA (Ecstasy) Screen Negative Benzodiazepines Screen Negative Cocaine Screen Negative U Marijuana (THC) Screen Negative Alcohol, Quantitative 10/21/17 10/21/17 10/21/17 05:30 05:30 05:30 WBC 7.6 RBC 4.62 Hgb 14.5 Hct 42.1 MCV 91.2 MCH 31.4 MCHC 34.4 RDW 13.8 Plt Count 129 L MPV 8.0 Absolute Neuts (auto) Neutrophils % Lymphocytes % Monocytes % Eosinophils % Basophils % Nucleated RBC % PT with INR 11.30 INR 1.00 PTT (Actin FS) 32.1 Sodium 139 Potassium 3.4 L Chloride 104 Carbon Dioxide 28 Anion Gap 7 L BUN 9 Creatinine 0.5 L Creat Clearance w eGFR > 60 Random Glucose 97 D Calcium 7.9 L Phosphorus 2.5 Magnesium 1.6 L Total Bilirubin 1.3 H AST 115 H ALT 78 Alkaline Phosphatase 118 H Ammonia Creatine Kinase Creatine Kinase Index CK-MB (CK-2) Troponin I Total Protein 5.9 L Albumin 3.1 L Urine Color Urine Appearance Urine pH Ur Specific [place] Urine Protein Urine Glucose (UA) Urine Ketones Urine Blood Urine Nitrite Urine Bilirubin Urine Urobilinogen Ur Leukocyte Esterase Urine WBC (Auto) Urine RBC (Auto) Hyaline Casts Opiates Screen Methadone Screen Barbiturate Screen Phencyclidine Screen Ur Amphetamines Screen MDMA (Ecstasy) Screen Benzodiazepines Screen Cocaine Screen U Marijuana (THC) Screen Alcohol, Quantitative Active Medications Generic Name Dose Route Start Last Admin Trade Name Freq PRN Reason Stop Dose Admin Chlordiazepoxide HCl 50 mg 10/21/17 05:00 10/21/17 05:38 Librium - PO 10/21/17 23:01 50 mg [id number] CHERYL Administration Chlordiazepoxide HCl 25 mg 10/22/17 05:00 Librium - PO 10/22/17 23:01 [id number] CHERYL Chlordiazepoxide HCl 15 mg 10/23/17 05:00 Librium - PO 10/23/17 23:01 [id number] CHERYL Chlordiazepoxide HCl 25 mg 10/20/17 18:52 10/21/17 00:39 Librium - PO 10/23/17 18:51 25 mg Q4H PRN Administration WITHDRAWAL(CONT SUBST) Heparin Sodium (Porcine) 5,000 unit 10/21/17 06:00 10/21/17 05:38 Heparin - SQ 5,000 unit TID CHERYL Administration ASSESSMENT/PLAN: Patient is a 67 y/o male with a past medical history of afib, HLD, and HTN, who presents with intoxication and subsequent afib with RVR. #Afib with RVR -Continue home medications of atenolol and apixaban -Continue to monitor on tele, rate controlled -Per Cardio ruled out SC - TSH 5.14 -CXR: possible cardiomegaly -echo: left ventricle is normal, left ventricular systolic function is mildly reduced, mild global hypokinesis -troponin negative x2 #Alcohol abuse -neuro checks -detox protocol, DT precautions -CT head & facial bones: no acute pathology, no gross fractures - alcohol level : 144 - began multi vitamin and pre vitamin #Elevated liver enzymes -AST: 115, ALT: 78, continue to trend -CK: 733 #HLD -continue home medications #FEN -Potassium :3.4, repleted -Magnesium : 1.6, repleted Dispo: finish librium taper, cannot finish outpatient because patient does not have insurance. Visit type - Emergency Visit Emergency Visit: No - New Patient This patient is new to me today: No - Critical Care Critical Care patient: No
--- NOTE | 2017-10-21 10:13 | CON.CARD ---
Consult Consult Specialty:: Cardiology Referred by:: Hospitalist Medicine Reason for Consultation:: Rapid afib - History of Present Illness Chief Complaint: Acute alcohol intoxication History of Present Illness: "67-year-old male, with a past medical history of persistent afib on metoprolol and apixaban, who presented to the ED via EMS with alcohol intoxication. As per , the patient was found lying on the ground this morning. She believes that he could have been down for about 2.5 hours. Pt has no recollection of falling but states he drank approximately 10 beers between 10PM last night and 2:30AM. The family is concerned about the patients recent excessive drinking, however the patient does not feel like his drinking is an issue. Pt also states that he has not been taking any of his medications for a month because he has been having side effects like bruising and GI upset. The patient denies any fever, chills, nausea, vomiting, diarrhea, or abdominal pain. Denies LUQUE/neck pain. Denies any chest pain, shortness of breath, palpitations, near or true syncope, orthopnea, PND or LE edema. - History Source History Provided By: Medical Record Limitations to Obtaining History: Poor Historian - Alcohol/Substance Use Hx Alcohol Use: Yes - Smoking History Smoking history: Former smoker Have you smoked in the past 12 months: No If you are a former smoker, when did you quit?: 2016 Home Medications - Allergies Allergies/Adverse Reactions: Allergies Allergy/AdvReac Type Severity Reaction Status Date / Time No Known Allergies Allergy Verified 10/20/17 11:53 - Home Medications Home Medications: Ambulatory Orders Apixaban [Eliquis -] 5 mg PO DAILY 10/20/17 Metoprolol Succinate 100 mg PO BID 10/20/17 Review of Systems Unable to obtain ROS, reason: Intoxicated Vital Signs: Vital Signs Temperature 98.4 F 10/21/17 08:04 Pulse Rate 110 H 10/21/17 08:04 Respiratory Rate 17 10/21/17 08:07 Blood Pressure 126/92 10/21/17 08:04 O2 Sat by Pulse Oximetry (%) 98 10/21/17 08:07 Constitutional: Yes: No Distress, Calm Neck: Yes: Supple Respiratory: Yes: Regular, CTA Bilaterally Gastrointestinal: Yes: Normal Bowel Sounds, Soft Cardiovascular: Yes: Tachycardia, Pulse Irregular JVD: No Carotid Bruit: No Heart Sounds: Yes: S1, S2 Edema: No - Other Data Labs, Other Data: CBC, BMP 10/21/17 05:30 10/21/17 05:30 INR, PTT INR 1.00 (0.82-1.09) 10/21/17 05:30 Troponin, BNP 10/20/17 10/20/17 13:00 19:00 Troponin I 0.02 0.02 Troponin, BNP 10/20/17 10/20/17 13:00 19:00 Troponin I 0.02 0.02 Afib @ 121 lateral TWI, no previous to compare Imaging - Results Chest X-ray: Report Reviewed (Min left lung base ATX) Cat Scan: Report Reviewed (HCT, neck CT: No bleed or fractures) Problem List - Problems (1) Acute alcohol intoxication Code(s): F10.929 - ALCOHOL USE, UNSPECIFIED WITH INTOXICATION, UNSPECIFIED Qualifiers: Complication of substance-induced condition: uncomplicated Qualified Code(s ): F10.929 - Alcohol use, unspecified with intoxication, unspecified (2) Noncompliance with medication regimen Code(s): Z91.14 - PATIENT'S OTHER NONCOMPLIANCE WITH MEDICATION REGIMEN (3) Atrial fibrillation with RVR Code(s): I48.91 - UNSPECIFIED ATRIAL FIBRILLATION Assessment/Plan 1. Acute alcohol intoxication post fall 2. Persistent atrial fibrillation with RVR 3. Medication non-compliance P:1. Ruled out for HI, check TSH and echo to assess ventricular and valve fxn 2. Continue metoprolol for rate-control, apixiban with caution given alcohol ingestion, emphasized importance of medication compliance and ETOH abstinence 3. Librium detox, DT precautions 4. Thank you for consultative opportunity
[2017-10-21] MEDS: MULTIVITAMINS (DAILY MVI) TABLET (FP) PO SCH (11:13)
[2017-10-21] MEDS: PRENATAL VITAMINS W/ FOLIC ACID TABLET (FP) PO SCH (11:13)
[2017-10-21] MEDS: METOPROLOL TARTRATE 50 MG TABLET (FP) PO SCH ×2 (11:13→22:43)
--- NOTE | 2017-10-21 11:30 | EKG ---
Test Reason : Blood Pressure : / mmHG Vent. Rate : 121 BPM Atrial Rate : 144 BPM P-R Int : 000 ms QRS Dur : 084 ms QT Int : 320 ms P-R-T Axes : 000 150 126 degrees QTc Int : 454 ms POOR DATA QUALITY, INTERPRETATION MAY BE ADVERSELY AFFECTED ATRIAL FIBRILLATION WITH RAPID VENTRICULAR RESPONSE RIGHT AXIS DEVIATION SEPTAL INFARCT , AGE UNDETERMINED ABNORMAL ECG NO PREVIOUS ECGS AVAILABLE Confirmed by MARIANA BEAR, MURTAZA ([id number]) on 10/21/2017 11:30:17 AM Referred By: Confirmed By:MURTAZA PEÑA MD
--- NOTE | 2017-10-21 14:44 | EKG ---
Test Reason : Blood Pressure : / mmHG Vent. Rate : 114 BPM Atrial Rate : 258 BPM P-R Int : 000 ms QRS Dur : 092 ms QT Int : 340 ms P-R-T Axes : 000 084 101 degrees QTc Int : 468 ms ATRIAL FIBRILLATION WITH RAPID VENTRICULAR RESPONSE WITH PREMATURE VENTRICULAR OR ABERRANTLY CONDUCTED COMPLEXES ABNORMAL ECG WHEN COMPARED WITH ECG OF 20-OCT-2017 12:14, NO SIGNIFICANT CHANGE WAS FOUND Confirmed by MURTAZA PEÑA MD ([id number]) on 10/21/2017 2:44:24 PM Referred By: MONSE EMMANUEL DR Confirmed By:MURTAZA PEÑA MD
[2017-10-21] MEDS ORDERED: IBUPROFEN 400 MG TABLET (FP) PO ONE (20:30)
--- NOTE | 2017-10-21 20:37 | PN ---
Teaching Attending Note Name of Resident: Lisa Hatfield ATTENDING PHYSICIAN STATEMENT I saw and evaluated the patient. I reviewed the resident's note and discussed the case with the resident. I agree with the resident's findings and plan as documented. SUBJECTIVE: OBJECTIVE: Vital Signs Temperature 97.9 F 10/21/17 17:00 Pulse Rate 103 H 10/21/17 17:00 Respiratory Rate 20 10/21/17 17:00 Blood Pressure 129/71 10/21/17 17:00 O2 Sat by Pulse Oximetry (%) 98 10/21/17 08:07 CBCD WBC 7.6 K/mm3 (4.0-10.0) 10/21/17 05:30 RBC 4.62 M/mm3 (4.00-5.60) 10/21/17 05:30 Hgb 14.5 GM/dL (11.7-16.9) 10/21/17 05:30 Hct 42.1 % (35.4-49) 10/21/17 05:30 MCV 91.2 fl (80-96) 10/21/17 05:30 MCHC 34.4 g/dl (32.0-35.9) 10/21/17 05:30 RDW 13.8 % (11.9-15.9) 10/21/17 05:30 Plt Count 129 K/MM3 (134-434) L 10/21/17 05:30 MPV 8.0 fl (7.5-11.1) 10/21/17 05:30 CMP Sodium 139 mmol/L (136-145) 10/21/17 05:30 Potassium 3.4 mmol/L (3.5-5.1) L 10/21/17 05:30 Chloride 104 mmol/L (98-107) 10/21/17 05:30 Carbon Dioxide 28 mmol/L (21-32) 10/21/17 05:30 Anion Gap 7 (8-16) L 10/21/17 05:30 BUN 9 mg/dL (7-18) 10/21/17 05:30 Creatinine 0.5 mg/dL (0.7-1.3) L 10/21/17 05:30 Creat Clearance w eGFR > 60 (>60) 10/21/17 05:30 Random Glucose 97 mg/dL (74-106) D 07/05/18 05:30 Calcium 7.9 mg/dL (8.5-10.1) L 10/21/17 05:30 Total Bilirubin 1.3 mg/dL (0.2-1.0) H 10/21/17 05:30 AST 115 U/L (15-37) H 10/21/17 05:30 ALT 78 U/L (12-78) 10/21/17 05:30 Alkaline Phosphatase 118 U/L (45-117) H 10/21/17 05:30 Total Protein 5.9 g/dl (6.4-8.2) L 10/21/17 05:30 Albumin 3.1 g/dl (3.4-5.0) L 10/21/17 05:30 CARDIAC ENZYMES Creatine Kinase 915 IU/L (39-308) H 10/20/17 19:00 Troponin I 0.02 ng/ml (0.00-0.05) 10/20/17 19:00 Current Medications Generic Name Dose Route Start Last Admin Trade Name Freq PRN Reason Stop Dose Admin Apixaban 5 mg 10/21/17 22:00 Eliquis - PO BID CHERYL Chlordiazepoxide HCl 50 mg 10/21/17 05:00 10/21/17 17:02 Librium - PO 10/21/17 23:01 50 mg [id number] CHERYL Administration Chlordiazepoxide HCl 25 mg 10/22/17 05:00 Librium - PO 10/22/17 23:01 [id number] CHERYL Chlordiazepoxide HCl 15 mg 10/23/17 05:00 Librium - PO 10/23/17 23:01 [id number] CHERYL Chlordiazepoxide HCl 25 mg 10/20/17 18:52 10/21/17 00:39 Librium - PO 10/23/17 18:51 25 mg Q4H PRN Administration WITHDRAWAL(CONT SUBST) Metoprolol Tartrate 50 mg 10/21/17 10:45 10/21/17 11:13 Lopressor - PO 50 mg BID CHERYL Administration Multivitamins/Minerals/Vitamin C 1 tab 10/21/17 10:00 10/21/17 11:13 Tab-A-Vit - PO 1 tab DAILY CHERYL Administration Multivit/Folic Acid/Iron 1 tab 10/21/17 10:00 07/05/18 11:13 Vitamins (Sjr) - PO 1 tab DAILY CHERYL Administration Home Medications Medication Instructions Recorded Apixaban [Eliquis -] 5 mg PO DAILY 10/20/17 Metoprolol Succinate 100 mg PO BID 10/20/17 PE: per resident's note EKG: Afib with RVR rate of 121, RAD, septal infarct age undetermined, T-wave inversion ASSESSMENT AND PLAN: The patient is a 67 yo m PMH afib, ETOH abuse admitted for afib w/ RVR #Afib with RVR on Eliquis anD lopressor 50mg BId to control the rate seen by multimedia developer #ETOH abuse monitor of DT, Librium protocol , s/p banana bag in ED, continue with IVF, continue Folic acid , thiamine continue. ABstinence of alcohol recommended. #Prophy :heparin SQ 5k #Dispo:admit tele
[2017-10-21] MEDS: APIXABAN 5 MG TABLET PO SCH (22:43)
[2017-10-22] MEDS ORDERED: chlordiazePOXIDE 5 MG CAPSULE PO SCH (05:00)
[2017-10-22] MEDS: chlordiazePOXIDE HCL 25 MG CAPSULE PO SCH ×4 (05:58→23:00)
--- NOTE | 2017-10-22 06:58 | PN ---
Physical Exam: SUBJECTIVE: Patient is a 67 y/o male with a past medical history of afib, HLD, and HTN, who presents with intoxication. Patient pleasant with no complaints. OBJECTIVE: Vital Signs Period Temp Pulse Resp BP Sys/Mae Pulse Ox Last 24 Hr 97.9 F-98.5 F 90-113 17-20 109-135/59-92 98 GENERAL: Awake, alert, and fully oriented, inebriated HEAD:Eccymoses to lateral side of left face and under right eye EYES: Pupils equal, round and reactive to light, extraocular movements intact LUNGS: Breath sounds equal, clear to auscultation bilaterally HEART: irregularly irregular rhytm ABDOMEN: Soft, nontender, not distended, normoactive bowel sounds MUSCULOSKELETAL: Normal range of motion at all joints. NEUROLOGICAL: Cranial nerves II-XII intact. Normal speech. SKIN: Warm, dry, normal turgor, large 5x5 cm eccymoses to left knee, few eccymoses 1x1 cm to left arm Laboratory Results - last 24 hr 10/21/17 10/21/17 10/21/17 05:30 05:30 05:30 PT with INR 11.30 INR 1.00 PTT (Actin FS) 32.1 Sodium 139 Potassium 3.4 L Chloride 104 Carbon Dioxide 28 Anion Gap 7 L BUN 9 Creatinine 0.5 L Creat Clearance w eGFR > 60 Random Glucose 97 D Calcium 7.9 L Phosphorus 2.5 Magnesium 1.6 L Total Bilirubin 1.3 H AST 115 H ALT 78 Alkaline Phosphatase 118 H Total Protein 5.9 L Albumin 3.1 L TSH 5.14 H Active Medications Generic Name Dose Route Start Last Admin Trade Name Jaceq PRN Reason Stop Dose Admin Apixaban 5 mg 10/21/17 22:00 10/21/17 22:43 Eliquis - PO 5 mg BID CHERYL Administration Chlordiazepoxide HCl 25 mg 10/22/17 05:00 10/22/17 05:58 Librium - PO 10/22/17 23:01 25 mg [id number] CHERYL Administration Chlordiazepoxide HCl 15 mg 10/23/17 05:00 Librium - PO 10/23/17 23:01 [id number] CHERYL Chlordiazepoxide HCl 25 mg 10/20/17 18:52 10/21/17 00:39 Librium - PO 10/23/17 18:51 25 mg Q4H PRN Administration WITHDRAWAL(CONT SUBST) Metoprolol Tartrate 50 mg 10/21/17 10:45 10/21/17 22:43 Lopressor - PO 50 mg BID CHERYL Administration Multivitamins/Minerals/Vitamin C 1 tab 10/21/17 10:00 10/21/17 11:13 Tab-A-Vit - PO 1 tab DAILY CHERYL Administration Multivit/Folic Acid/Iron 1 tab 10/21/17 10:00 10/21/17 11:13 Vitamins (Sjr) - PO 1 tab DAILY CHERYL Administration ASSESSMENT/PLAN: Patient is a 67 y/o male with a past medical history of afib, HLD, and HTN, who presents with intoxication and subsequent afib with RVR. #Afib with RVR -Continue home medications of apixaban, increase metorprolol 50mg TID -Continue to monitor on tele, rate controlled -Per Cardio ruled out OK - TSH 5.14> 6.48, free T 4: 1.34 -CXR: possible cardiomegaly -echo: left ventricle is normal, left ventricular systolic function is mildly reduced, mild global hypokinesis -troponin negative x2 #Alcohol abuse -neuro checks -detox protocol, DT precautions -CT head & facial bones: no acute pathology, no gross fractures - alcohol level : 144 - began multi vitamin and pre vitamin #Elevated liver enzymes -AST: 115, ALT: 78 -CK: 733 #HLD -continue home medications #FEN -Potassium :3.4, repleted -Magnesium : 1.6, repleted Dispo: finish librium taper, cannot finish outpatient because patient does not have insurance. Visit type - Emergency Visit Emergency Visit: No - New Patient This patient is new to me today: No - Critical Care Critical Care patient: No - Discharge Referral Referred to [facility] Med P.C.: No
[2017-10-22 08:00] LABS: ANION GAP 7 (8-16); BLOOD UREA NITROGEN 9 mg/dL (7-18); CALCIUM 8.6 mg/dL (8.5-10.1); CHLORIDE 102 mmol/L (98-107); CO2 30 mmol/L (21-32); CREATININE 0.6 mg/dL (0.7-1.3); GLUCOSE,RANDOM 78 mg/dL (74-106); SODIUM 139 mmol/L (136-145)
[2017-10-22] MEDS ORDERED: PT OWN MED DRAWER 7, Y5N ONE (09:41)
--- NOTE | 2017-10-22 10:00 | PN ---
Progress Note, Physician History of Present Illness: Continues with rapid afib, denies palpitations, dyspnea, cp, tremulousness. - Current Medication List Current Medications: Active Medications Apixaban (Eliquis -) 5 mg PO BID [facility] Last Admin: 10/21/17 22:43 Dose: 5 mg Chlordiazepoxide HCl (Librium -) 25 mg PO Q5T-EUM [facility] Stop: 10/22/17 23:01 Last Admin: 10/22/17 05:58 Dose: 25 mg Chlordiazepoxide HCl (Librium -) 15 mg PO [id number] [facility] Stop: 10/23/17 23:01 Chlordiazepoxide HCl (Librium -) 25 mg PO Q4H PRN PRN Reason: WITHDRAWAL(CONT SUBST) Stop: 10/23/17 18:51 Last Admin: 10/21/17 00:39 Dose: 25 mg Metoprolol Tartrate (Lopressor -) 50 mg PO BID [facility] Last Admin: 10/21/17 22:43 Dose: 50 mg Multivitamins/Minerals/Vitamin C (Tab-A-Vit -) 1 tab PO DAILY [facility] Last Admin: 10/21/17 11:13 Dose: 1 tab Multivit/Folic Acid/Iron ( Vitamins (Sjr) -) 1 tab PO DAILY [facility] Last Admin: 10/21/17 11:13 Dose: 1 tab - Objective Vital Signs: Vital Signs Temperature 98.2 F 10/21/17 22:00 Pulse Rate 101 H 10/22/17 06:00 Respiratory Rate 20 10/22/17 06:00 Blood Pressure 127/70 10/22/17 06:00 O2 Sat by Pulse Oximetry (%) 98 10/21/17 08:07 Constitutional: Yes: No Distress, Calm, Thin Cardiovascular: Yes: Tachycardia, Pulse Irregular Respiratory: Yes: Regular, CTA Bilaterally Gastrointestinal: Yes: Normal Bowel Sounds, Soft Edema: No Labs: CBC, BMP 10/21/17 05:30 10/22/17 06:40 INR, PTT INR 1.00 (0.82-1.09) 10/21/17 05:30 - ....Imaging EKG: Report Reviewed (Tele: Rapid afib) Problem List - Problems (1) Acute alcohol intoxication Code(s): F10.929 - ALCOHOL USE, UNSPECIFIED WITH INTOXICATION, UNSPECIFIED Qualifiers: Complication of substance-induced condition: uncomplicated Qualified Code(s ): F10.929 - Alcohol use, unspecified with intoxication, unspecified (2) Noncompliance with medication regimen Code(s): Z91.14 - PATIENT'S OTHER NONCOMPLIANCE WITH MEDICATION REGIMEN (3) Atrial fibrillation with RVR Code(s): I48.91 - UNSPECIFIED ATRIAL FIBRILLATION (4) Systolic dysfunction without heart failure Code(s): I51.89 - OTHER ILL-DEFINED HEART DISEASES (5) Alcoholic hepatitis Code(s): K70.10 - ALCOHOLIC HEPATITIS WITHOUT ASCITES Qualifiers: Ascites presence: without ascites Qualified Code(s): K70.10 - Alcoholic hepatitis without ascites Assessment/Plan 10/21/2017 Echo: Normal LV size with left ventricular systolic function is mildly reduced, mild global hypokinesis, normal RV size and fxn, mod AUGIE, mild MR, TR 1. Acute alcohol intoxication post fall 2. Persistent atrial fibrillation with RVR 3. Medication non-compliance 4. Alcohol hepatitis 5. LV systolic dysfunction - tachycardia-induced vs alcohol P:1. Ruled out for UT, LFTs plateaued, avoid hepatotoxins, f/u FT4 2. Increase metoprolol 50 tid for rate-control, apixiban with caution given alcohol ingestion, emphasized importance of medication compliance and ETOH abstinence 3. Librium detox, DT precautions, replete electrolytes as you are
[2017-10-22] MEDS: APIXABAN 5 MG TABLET PO SCH ×2 (10:09→22:59)
[2017-10-22] MEDS: MULTIVITAMINS (DAILY MVI) TABLET (FP) PO SCH (10:09)
[2017-10-22] MEDS: METOPROLOL TARTRATE 50 MG TABLET (FP) PO SCH ×4 (10:09→18:05)
[2017-10-22] MEDS: PRENATAL VITAMINS W/ FOLIC ACID TABLET (FP) PO SCH (10:09)
--- NOTE | 2017-10-22 19:32 | PN ---
Teaching Attending Note Name of Resident: Lisa Hatfield ATTENDING PHYSICIAN STATEMENT I saw and evaluated the patient. I reviewed the resident's note and discussed the case with the resident. I agree with the resident's findings and plan as documented. SUBJECTIVE: No further tremor. feels better. OBJECTIVE: Vital Signs Temperature 98.2 F 10/22/17 14:05 Pulse Rate 95 H 10/22/17 14:05 Respiratory Rate 20 10/22/17 14:05 Blood Pressure 119/61 10/22/17 14:05 O2 Sat by Pulse Oximetry (%) 98 10/21/17 08:07 CBCD WBC 7.6 K/mm3 (4.0-10.0) 10/21/17 05:30 RBC 4.62 M/mm3 (4.00-5.60) 10/21/17 05:30 Hgb 14.5 GM/dL (11.7-16.9) 10/21/17 05:30 Hct 42.1 % (35.4-49) 10/21/17 05:30 MCV 91.2 fl (80-96) 10/21/17 05:30 MCHC 34.4 g/dl (32.0-35.9) 10/21/17 05:30 RDW 13.8 % (11.9-15.9) 10/21/17 05:30 Plt Count 129 K/MM3 (134-434) L 10/21/17 05:30 MPV 8.0 fl (7.5-11.1) 10/21/17 05:30 CMP Sodium 139 mmol/L (136-145) 10/22/17 06:40 Potassium 4.0 mmol/L (3.5-5.1) 10/22/17 06:40 Chloride 102 mmol/L (98-107) 10/22/17 06:40 Carbon Dioxide 30 mmol/L (21-32) 10/22/17 06:40 Anion Gap 7 (8-16) L 10/22/17 06:40 BUN 9 mg/dL (7-18) 10/22/17 06:40 Creatinine 0.6 mg/dL (0.7-1.3) L 10/22/17 06:40 Creat Clearance w eGFR > 60 (>60) 10/22/17 06:40 Random Glucose 78 mg/dL (74-106) 10/22/17 06:40 Calcium 8.6 mg/dL (8.5-10.1) 10/22/17 06:40 Total Bilirubin 1.3 mg/dL (0.2-1.0) H 10/21/17 05:30 AST 115 U/L (15-37) H 10/21/17 05:30 ALT 78 U/L (12-78) 10/21/17 05:30 Alkaline Phosphatase 118 U/L (45-117) H 10/21/17 05:30 Total Protein 5.9 g/dl (6.4-8.2) L 10/21/17 05:30 Albumin 3.1 g/dl (3.4-5.0) L 10/21/17 05:30 CARDIAC ENZYMES Creatine Kinase 915 IU/L (39-308) H 10/20/17 19:00 Troponin I 0.02 ng/ml (0.00-0.05) 10/20/17 19:00 Current Medications Generic Name Dose Route Start Last Admin Trade Name Jaceq PRN Reason Stop Dose Admin Apixaban 5 mg 10/21/17 22:00 10/22/17 10:09 Eliquis - PO 5 mg BID CHERYL Administration Chlordiazepoxide HCl 25 mg 10/22/17 05:00 10/22/17 17:10 Librium - PO 10/22/17 23:01 25 mg [id number] CHERYL Administration Chlordiazepoxide HCl 15 mg 10/23/17 05:00 Librium - PO 10/23/17 23:01 [id number] CHERYL Chlordiazepoxide HCl 25 mg 10/20/17 18:52 10/21/17 00:39 Librium - PO 10/23/17 18:51 25 mg Q4H PRN Administration WITHDRAWAL(CONT SUBST) Metoprolol Tartrate 50 mg 10/22/17 10:30 10/22/17 18:05 Lopressor - PO Not Given Q8H CHERYL Multivitamins/Minerals/Vitamin C 1 tab 10/21/17 10:00 10/22/17 10:09 Tab-A-Vit - PO 1 tab DAILY CHERYL Administration Multivit/Folic Acid/Iron 1 tab 10/21/17 10:00 10/22/17 10:09 Vitamins (Sjr) - PO 1 tab DAILY CHERYL Administration Home Medications Medication Instructions Recorded Apixaban [Eliquis -] 5 mg PO DAILY 10/20/17 Metoprolol Succinate 100 mg PO BID 10/20/17 EKG: Afib with RVR rate of 121, RAD, septal infarct age undetermined, T-wave inversion PE: per resident's note ASSESSMENT AND PLAN: The patient is a 67 yo m PMH afib, ETOH abuse admitted for afib w/ RVR #Afib with RVR on Eliquis anD lopressor 50mg BId increased to tid for better rate control , patient is seen by evaporator supervisor. #ETOH abuse monitor of DT, Librium protocol , s/p banana bag in ED, continue with IVF, continue Folic acid , thiamine continue. ABstinence of alcohol recommended. #Prophy :heparin SQ 5k #Dispo:admit tele
--- NOTE | 2017-10-22 19:47 | PN ---
S Progress Note (SOAP) Subjective: Addiction med service called re pts alcohol use 67yo M with PMH of Afib presented to the ED after being found down by his with altered mental status. There is a concern by the family for his increased alcohol intake. Head CT negative. Pt was admitted for management of new onset a fib. Pt states he does not use alcohol regularly. States he was drinking while cooking for a gathering on October 20. And tripped at home causing bruising of face and elsewhere. Pt denies that alcohol was the cause of his fall. Pt is alert and oriented Objective: 10/22/17 19:45 CBCD WBC 7.6 K/mm3 (4.0-10.0) 10/21/17 05:30 RBC 4.62 M/mm3 (4.00-5.60) 10/21/17 05:30 Hgb 14.5 GM/dL (11.7-16.9) 10/21/17 05:30 Hct 42.1 % (35.4-49) 10/21/17 05:30 MCV 91.2 fl (80-96) 10/21/17 05:30 MCHC 34.4 g/dl (32.0-35.9) 10/21/17 05:30 RDW 13.8 % (11.9-15.9) 10/21/17 05:30 Plt Count 129 K/MM3 (134-434) L 10/21/17 05:30 MPV 8.0 fl (7.5-11.1) 10/21/17 05:30 CMP Sodium 139 mmol/L (136-145) 10/22/17 06:40 Potassium 4.0 mmol/L (3.5-5.1) 10/22/17 06:40 Chloride 102 mmol/L (98-107) 10/22/17 06:40 Carbon Dioxide 30 mmol/L (21-32) 10/22/17 06:40 Anion Gap 7 (8-16) L 10/22/17 06:40 BUN 9 mg/dL (7-18) 10/22/17 06:40 Creatinine 0.6 mg/dL (0.7-1.3) L 10/22/17 06:40 Creat Clearance w eGFR > 60 (>60) 10/22/17 06:40 Random Glucose 78 mg/dL (74-106) 10/22/17 06:40 Calcium 8.6 mg/dL (8.5-10.1) 10/22/17 06:40 Total Bilirubin 1.3 mg/dL (0.2-1.0) H 10/21/17 05:30 AST 115 U/L (15-37) H 10/21/17 05:30 ALT 78 U/L (12-78) 10/21/17 05:30 Alkaline Phosphatase 118 U/L (45-117) H 10/21/17 05:30 Total Protein 5.9 g/dl (6.4-8.2) L 10/21/17 05:30 Albumin 3.1 g/dl (3.4-5.0) L 10/21/17 05:30 CARDIAC ENZYMES Creatine Kinase 915 IU/L (39-308) H 10/20/17 19:00 Troponin I 0.02 ng/ml (0.00-0.05) 10/20/17 19:00 Vital Signs - 24 hr 10/21/17 10/22/17 10/22/17 22:00 06:00 14:05 Temperature 98.2 F 98.2 F Pulse Rate 113 H 101 H 95 H Respiratory 20 20 20 Rate Blood Pressure 135/86 127/70 119/61 10/23/17 22:17 VS stable as noted. tachycardic and with irr irr heart bead no tremors at the time of PE, pt is alert and oriented Assessment: 10/23/17 22:19 No evidence for Alcohol Use Disorder,Pt with an episode of falling and secondary bruises, which pt states is due to a mis-step. pt denies regular alcohol use- and according to nurse family agrees with this. Plan: d/w pt detox and rehab services offered at [facility]- pt refused- denying that he had an alcohol use problem. Thanks for this consult. Please call us if we can be of further assistance.
[2017-10-23] MEDS: METOPROLOL TARTRATE 50 MG TABLET (FP) PO SCH ×3 (02:46→17:30)
[2017-10-23] MEDS: chlordiazePOXIDE 5 MG CAPSULE PO SCH ×3 (06:38→16:25)
[2017-10-23 08:43] LABS: CHLORIDE 101 mmol/L (98-107); POTASSIUM 4.2 mmol/L (3.5-5.1); SODIUM 140 mmol/L (136-145)
[2017-10-23 08:57] LABS: ANION GAP 9 (8-16); BLOOD UREA NITROGEN 11 mg/dL (7-18); CALCIUM 9.1 mg/dL (8.5-10.1); CO2 30 mmol/L (21-32); CREATININE 0.6 mg/dL (0.7-1.3); GLUCOSE,RANDOM 89 mg/dL (74-106)
--- NOTE | 2017-10-23 09:42 | PN ---
Progress Note (short form) - Note Progress Note: Chief Complaint: Events noted, notes reviewed, denies any chest pain or dyspnea , atrial fibrillation persists with improved heart rate control History of Present Illness: Seen and examined on telemetry. Events noted, notes reviewed, denies any chest pain or dyspnea, atrial fibrillation persists with improved heart rate control Echocardiography dated 10/21/2017 revealed normal LV size with left ventricular systolic function is mildly reduced, mild global hypokinesis, normal RV size and function, mod AUGIE, mild MR and TR - Current Medication List Current Medications: Current Medications Apixaban (Eliquis -) 5 mg PO BID [facility] Last Admin: 10/22/17 22:59 Dose: 5 mg Chlordiazepoxide HCl (Librium -) 15 mg PO [id number] [facility] Stop: 10/23/17 23:01 Last Admin: 10/23/17 06:38 Dose: 15 mg Chlordiazepoxide HCl (Librium -) 25 mg PO Q4H PRN PRN Reason: WITHDRAWAL(CONT SUBST) Stop: 10/23/17 18:51 Last Admin: 10/21/17 00:39 Dose: 25 mg Metoprolol Tartrate (Lopressor -) 50 mg PO Q8H [facility] Last Admin: 10/23/17 02:46 Dose: 50 mg Multivitamins/Minerals/Vitamin C (Tab-A-Vit -) 1 tab PO DAILY [facility] Last Admin: 10/22/17 10:09 Dose: 1 tab Multivit/Folic Acid/Iron ( Vitamins (Sjr) -) 1 tab PO DAILY [facility] Last Admin: 10/22/17 10:09 Dose: 1 tab - Objective Vital Signs: Last Vital Signs Temp Pulse Resp BP Pulse Ox 98.2 F 107 H 20 141/87 96 10/23/17 05:06 10/23/17 06:00 10/23/17 06:00 10/23/17 06:00 10/22/17 21:00 Intake & Output 10/20/17 10/21/17 10/22/17 10/23/17 23:59 23:59 23:59 23:59 Intake Total 560 2480 Output Total 400 900 Balance 560 2080 -900 Weight 113 lb 3.2 oz Constitutional: No Distress, Calm, Thin Cardiovascular: S1 S2 Irregularly Irregular Respiratory: CTA Bilaterally Gastrointestinal: Soft Benign Normal Bowel Sounds Ext: No Edema Labs: CBC, BMP 07/05/18 05:30 10/23/17 06:35 Assessment/Plan ASSESSMENT: 1. Acute alcohol intoxication (resolved) post fall 2. Persistent atrial fibrillation with periods of RVR, improved heart rate control [id number] score of 2 on DOAC's 3. LV systolic dysfunction mild in severity with class 0 NYHA classification LV failure 4. Medication administration non-compliance 5. Alcohol hepatitis 6. Thrombocytopenia PLAN: 1. Continue Metoprolol and may titrate as needed and as tolerated 2. Continue DOAC's/Eliquis-Apixiban with caution given alcohol ingestion, and the above noted thrombocytopenia 3. Emphasized to the patient importance of medication compliance and ETOH abstinence 4. Additional evaluation for the above noted LV systolic dysfunction can be performed as outpatient, including MPI study Giovanny Mclean M.D.
[2017-10-23] MEDS ORDERED: PT OWN MED DRAWER 7, Y5N ONE (10:32)
[2017-10-23] MEDS: MULTIVITAMINS (DAILY MVI) TABLET (FP) PO SCH (10:32)
[2017-10-23] MEDS: APIXABAN 5 MG TABLET PO SCH (10:33)
[2017-10-23] MEDS: PRENATAL VITAMINS W/ FOLIC ACID TABLET (FP) PO SCH (10:34)
[2017-10-23 14:22] VITALS: BP 100/62; PULSE 87; TEMP 97.8
--- NOTE | 2017-10-23 16:21 | DS ---
Physical Exam: SUBJECTIVE: Patient seen and examined Patient is feeling better, able to ambulate without any difficulty OBJECTIVE: Vital Signs Temperature 97.8 F 10/23/17 14:21 Pulse Rate 87 10/23/17 14:21 Respiratory Rate 20 10/23/17 14:21 Blood Pressure 100/62 10/23/17 14:21 O2 Sat by Pulse Oximetry (%) 96 10/22/17 21:00 PHYSICAL EXAM GENERAL: The patient is awake, alert, and fully oriented, in no acute distress. HEAD: Normal with no signs of trauma. EYES: PERRL, extraocular movements intact, sclera anicteric, conjunctiva clear. ENT: Ears normal, oropharynx clear without exudates, moist mucous membranes. NECK: Trachea midline, full range of motion, supple. LUNGS: Breath sounds equal, clear to auscultation bilaterally, no wheezes, no crackles, no accessory muscle use. HEART: irregularly irregular with rate controlled now , S1, S2 without murmur, rub or gallop. ABDOMEN: Soft, nontender, nondistended, normoactive bowel sounds, no guarding, no rebound, no hepatosplenomegaly, no masses. EXTREMITIES: 2+ pulses, warm, well-perfused, no edema. NEUROLOGICAL: Cranial nerves II through XII grossly intact. Normal speech, gait is steady PSYCH: Normal mood, normal affect. SKIN: Warm, dry, normal turgor, no rashes or lesions noted. LABS Laboratory Results - last 24 hr 10/23/17 06:35 Sodium 140 Potassium 4.2 Chloride 101 Carbon Dioxide 30 Anion Gap 9 BUN 11 Creatinine 0.6 L Creat Clearance w eGFR > 60 Random Glucose 89 Calcium 9.1 CBCD WBC 7.6 K/mm3 (4.0-10.0) 10/21/17 05:30 RBC 4.62 M/mm3 (4.00-5.60) 10/21/17 05:30 Hgb 14.5 GM/dL (11.7-16.9) 10/21/17 05:30 Hct 42.1 % (35.4-49) 10/21/17 05:30 MCV 91.2 fl (80-96) 10/21/17 05:30 MCHC 34.4 g/dl (32.0-35.9) 10/21/17 05:30 RDW 13.8 % (11.9-15.9) 10/21/17 05:30 Plt Count 129 K/MM3 (134-434) L 10/21/17 05:30 MPV 8.0 fl (7.5-11.1) 10/21/17 05:30 CMP Sodium 140 mmol/L (136-145) 10/23/17 06:35 Potassium 4.2 mmol/L (3.5-5.1) 10/23/17 06:35 Chloride 101 mmol/L (98-107) 10/23/17 06:35 Carbon Dioxide 30 mmol/L (21-32) 10/23/17 06:35 Anion Gap 9 (8-16) 10/23/17 06:35 BUN 11 mg/dL (7-18) 10/23/17 06:35 Creatinine 0.6 mg/dL (0.7-1.3) L 10/23/17 06:35 Creat Clearance w eGFR > 60 (>60) 10/23/17 06:35 Random Glucose 89 mg/dL (74-106) 10/23/17 06:35 Calcium 9.1 mg/dL (8.5-10.1) 10/23/17 06:35 Total Bilirubin 1.3 mg/dL (0.2-1.0) H 10/21/17 05:30 AST 115 U/L (15-37) H 10/21/17 05:30 ALT 78 U/L (12-78) 10/21/17 05:30 Alkaline Phosphatase 118 U/L (45-117) H 10/21/17 05:30 Total Protein 5.9 g/dl (6.4-8.2) L 10/21/17 05:30 Albumin 3.1 g/dl (3.4-5.0) L 10/21/17 05:30 CARDIAC ENZYMES Creatine Kinase 915 IU/L (39-308) H 10/20/17 19:00 Troponin I 0.02 ng/ml (0.00-0.05) 10/20/17 19:00 HOSPITAL COURSE: Date of Admission:10/20/17 Date of Discharge: 10/23/17 The patient is a 67 yo m PMHx afib, ETOH abuse admitted for afib w/ RVR, patient 's hr is controlled now, patient is being discharged home, discussed with corporate ethics officer , patient is stable to go home, Follow up with his corporate ethics officer ; , follow with primary care physician, Patient was advised not to drink with this medications, If he falls high risk for head bleed or any bleed. patient understands and daughter at bedside. #Afib with rate controlled now, continue with Toprol XL 100mg po bid and Eiquis 5mg po bid that was given to him by his PMD. Follow with corporate ethics officer dr. ramirez for further care . #ETOH abuse monitor of Randy BRAVO protocol , s/p banana bag in ED, continue with IVF, continue Folic acid , thiamine continue. Completed detox in the hospital. ABstinence of alcohol recommended, the risk were informed and he understands. discsharge patient home. 40min. Minutes to complete discharge: 40 Discharge Summary Reason For Visit: ATRIAL FIBRILLATION WITH RAPID VENTRICULAR RESPONS Current Active Problems Alcoholic hepatitis (Acute) Atrial fibrillation with RVR (Acute) Noncompliance with medication regimen (Acute) Systolic dysfunction without heart failure (Acute) Acute alcohol intoxication (Chronic) Condition: Improved - Instructions Diet, Activity, Other Instructions: You were brought to the Emergency department when your found you on the ground. You were intoxicated with alcohol at the time. Substance abuse of alcohol is a serious condition and can cause many negative side effects to your health. You were given medication to help you with your drinking for your stay in the hospital. You also have atrial fibrillation. This is because you stopped taking your home medications (Toprol XL 100mg orally 2x per day and Eliquis 5mg orally 2x per day ). It is very important to take medications as prescribed and at all times. if you have any questions about your medications you can ask your [facility]. Your medications include:Elliquis 5 mg to be taken 2x per day and Metoprolol XL 100mg 2x per day. Please follow up with your primary care doctor within one week. If your symptoms do not resolve or you have worsening of your symptoms please return to the Emergency Department PLEASE DO NOT DRINK ALCOHOL WHILE YOU ARE TAKING THESE MEDICATIONS SUCH ELIQUIS SINCE YOU CAN FALL AND HIT YOUR HEAD and HAVE A HEAD BLEED AND YOU CAN BECOME COMATOSE AND MIGHT NOT BE ABLE TO WAKE UP. Referrals: Matthew Ramirez MD [Staff Physician] - 1 Week Disposition: HOME - Home Medications Comprehensive Discharge Medication List: Ambulatory Orders Apixaban [Eliquis -] 5 mg PO DAILY 10/20/17 Apixaban [Eliquis -] 5 mg PO BID tablet 10/23/17 Metoprolol Tartrate [Lopressor -] 50 mg PO Q8H #90 tablet 10/23/17 This patient is new to me today: No Emergency Visit: Yes ED Registration Date: 10/20/17 Care time: The patient presented to the Emergency Department on the above date and was hospitalized for further evaluation of their emergent condition. Critical Care patient: No - Discharge Referral Referred to [facility] Med P.C.: No
== END 2017-10-23 17:30 | disposition home or self-care (01) | DRG 201 ==
LOC: JER 11:35 → JERBED 15:49 → OBSVTOIN 18:46 → J4W 18:47
PROVIDERS: ADMIT Internal Medicine; ATTEND Internal Medicine
DX: I48.1 Persistent atrial fibrillation (principal); D69.6 Thrombocytopenia, unspecified; K70.10 Alcoholic hepatitis without ascites; F10.129 Alcohol abuse with intoxication, unspecified; Y90.6 Blood alcohol level of 120-199 mg/100 ml; J98.11 Atelectasis; Z91.14 Patient's other noncompliance with medication regimen; Z87.891 Personal history of nicotine dependence; S00.83XA Contusion of other part of head, initial encounter; S80.02XA Contusion of left knee, initial encounter; S50.12XA Contusion of left forearm, initial encounter; S00.81XA Abrasion of other part of head, initial encounter; S00.31XA Abrasion of nose, initial encounter; W01.0XXA Fall on same level from slipping, tripping and stumbling without subsequent striking against object, initial encounter; Y93.89 Activity, other specified; Y92.038 Other place in apartment as the place of occurrence of the external cause; Y99.8 Other external cause status; I10 Essential (primary) hypertension; E78.5 Hyperlipidemia, unspecified; R00.0 Tachycardia, unspecified; I51.89 Other ill-defined heart diseases
CPT/HCPCS: 36415; 70450-TC; 70486-TC; 71045-TC-FY; 72125-TC; 80048; 80053; 80307; 81003; 81015; 82140; 82550; 82553; 83735; 84100; 84439; 84443; 84484; 85025; 85027; 85610; 85730; 90715; 93005; 93010; 93306-TC; 97116-GP; 97161-GP; 99285-25; G0378; J1644; J7030

== ENCOUNTER 2018-02-24 20:25 | Emergency (ER) | payer OTHER ==
[2018-02-24 20:35] VITALS: BP 114/83; PULSE 120; TEMP 98.6; BMI 21.4
--- NOTE | 2018-02-24 20:43 | PDOC ---
History of Present Illness - General History Source: Patient, Family Exam Limitations: No Limitations - History of Present Illness Initial Comments: 02/24/18 21:27 The patient is a 67 year old male brought via EMS, with a significant past medical history of AFIB, who presents to the ED complaining of left elbow hematoma after a fall today. He notes that he was carrying groceries when he tripped and broke his fall with his hands. He was able to get back up and walk on his own. He notes that he did not feel any pain and even walked to the grocery store to check his lotto numbers. He does note that he has new shoes which are heavier than his old shoes. He went home and took off his shirt, which is when he noticed the left elbow hematoma and decided to call EMS. He denies any head injury, loss of consciousness or any other kind of injury. The patient denies chest pain, shortness of breath, headache and dizziness. Allergies: None Past surgical history: None reported Social History: Former smoker. Occasional alcohol use. No drug use reported <Alex Echevarria - Last Filed: 02/24/18 21:40> <Ange Kaiser - Last Filed: 02/25/18 04:24> - General Chief Complaint: Injury Stated Complaint: LT ARM INJURY Time Seen by Provider: 02/24/18 20:26 Past History <Alex Echevarria - Last Filed: 02/24/18 21:40> - Past Medical History Cardiac Disorders: Yes (A-FIB) COPD: No - Suicide/Smoking/Psychosocial Hx Smoking History: Former smoker Have you smoked in the past 12 months: No If you are a former smoker, when did you quit?: 2016 Information on smoking cessation initiated: No Hx Alcohol Use: Yes <Ange Kaiser - Last Filed: 02/25/18 04:24> - Past Medical History Allergies/Adverse Reactions: Allergies Allergy/AdvReac Type Severity Reaction Status Date / Time No Known Allergies Allergy Verified 10/20/17 11:53 Home Medications: Ambulatory Orders Aspirin [Aspirin EC] 81 mg PO DAILY 02/24/18 Review of Systems - Review of Systems Able to Perform ROS?: Yes Comments:: 02/24/18 21:27 GENERAL/CONSTITUTIONAL: No fever or chills. No weakness. HEAD, EYES, EARS, NOSE AND THROAT: No change in vision. No ear pain or discharge. No sore throat. GASTROINTESTINAL: No nausea, vomiting, diarrhea or constipation. GENITOURINARY: No dysuria, frequency, or change in urination. CARDIOVASCULAR: No chest pain or shortness of breath. RESPIRATORY: No cough, wheezing, or hemoptysis. MUSCULOSKELETAL: (+) Left elbow hematoma. No joint or muscle swelling or pain. No neck or back pain. SKIN: No rash NEUROLOGIC: No headache, vertigo, loss of consciousness, or change in strength/ sensation. ENDOCRINE: No increased thirst. No abnormal weight change. HEMATOLOGIC/LYMPHATIC: No anemia, easy bleeding, or history of blood clots. ALLERGIC/IMMUNOLOGIC: No hives or skin allergy. <Alex Echevarria - Last Filed: 02/24/18 21:40> *Physical Exam - Vital Signs Last Vital Signs Temp Pulse Resp BP Pulse Ox 98.6 F 120 H 18 114/83 98 02/24/18 20:30 02/24/18 20:30 02/24/18 20:30 02/24/18 20:30 02/24/18 20:30 - Physical Exam Comments: 02/24/18 21:27 Constitutional: Awake, alert, oriented. No acute distress. Head: Normocephalic. Atraumatic Eyes: PERRL. EOMI. Conjunctivae are not pale. ENT: Mucous membranes are moist and intact. Posterior pharynx without exudates or erythema. Uvula midline. Neck: Supple. Full ROM. No lymphadenopathy. Cardiovascular: Regular rate. Regular rhythm. S1, S2 regular. Distal pulses are 2+ and symmetric. Pulmonary/Chest: No evidence of respiratory distress. Clear to auscultation bilaterally No wheezing, rales or rhonchi. Abdominal: Soft and non-distended. There is no tenderness. No rebound, guarding or rigidity. No organomegaly. No palpable masses. Good bowel sounds. Back: No CVA tenderness. Musculoskeletal: (+) 4cm by 2 cm soft mildly tender fluid collection / swelling of the dorsal aspect of the proximal forearm. No deformity, ecchymosis , no pain on suplenation and pronation of the left arm. Full flexion and extension of elbow is present and non-painful. No edema. No cyanosis. No clubbing. Full range of motion in all extremities. No calf tenderness. Radial/ pedal pulses are intact and 2+ bilaterally Skin: (+) 0.5 cm curvilinear laceration of the left elbow. Skin is warm and dry. No petechiae. No purpura. Neurological: Alert and oriented to person, place, and time. Cranial nerves II -XII are grossly intact. Normal speech. Strength is grossly symmetric. No sensory deficits. Psychiatric: Good eye contact. Normal interaction, affect and behavior. <Alex Echevarria - Last Filed: 02/24/18 21:40> - Vital Signs Last Vital Signs Temp Pulse Resp BP Pulse Ox 98.6 F 120 H 18 114/83 98 02/24/18 20:30 02/24/18 20:30 02/24/18 20:30 02/24/18 20:30 02/24/18 20:30 <Ange Kaiser - Last Filed: 02/25/18 04:24> Progress Note - Progress Note Progress Note: Documentation has been prepared under my direction and personally reviewed by me in its entirety. I attest that this documented accurately reflects all work, treatment, procedures and medical decision making performed by me. <Ange Kaiser - Last Filed: 02/25/18 04:24> Medical Decision Making - Medical Decision Making As noted above, this patient is brought in by EMS with a history of tripping on an uneven pavement and impacting his left forearm (as well as right forearm/ wrist) on sidewalk. No initial injury noted but patient realized he had a swollen area of the proximal left forearm when he returned home. That is when he called EMS for evaluation by ED. Exam as noted. Left elbow x-ray preliminary reading by me: No evidence of fracture/dislocation/ anterior or posterior fat pad sign. Clinical presentation most consistent with hematoma. Superficial laceration cleansed thoroughly using Hibiclens/ethanol solution and covered with bacitracin /Band-Aid. The hematoma along the proximal ulnar surface was wrapped with Jimmy wrap. Patient should keep Jimmy wrap on during the day for the next several days, icing and elevating as much as possible for next 48 hours. Patient was given referral information for /[facility] if he has persistent swelling/pain in the area. <Ange Kaiser - Last Filed: 02/25/18 04:24> *DC/Admit/Observation/Transfer - Attestations Scribe Attestion: 02/24/18 21:27 Documentation prepared by Alex Echevarria, acting as medical center representative for Ange Kaiser MD <Alex Echevarria - Last Filed: 02/24/18 21:40> <Ange Kaiser - Last Filed: 02/25/18 04:24> Diagnosis at time of Disposition: Traumatic hematoma of left forearm Qualifiers: Encounter type: initial encounter Qualified Code(s): S50.12XA - Contusion of left forearm, initial encounter - Discharge Dispostion Disposition: HOME Condition at time of disposition: Stable - Referrals Referrals: Anup Edward MD [Staff Physician] - 1 week - Patient Instructions Printed Discharge Instructions: DI for Hematoma (Bruise) Additional Instructions: elevate left arm as much as possible for the next 2-3 days jimmy wrap during the day for the next 5 days tylenol as needed for pain continue other medications as prescribed followup with orthopedist(Dr [facility]) if you have persistent swelling or pain followup with your medical doctor within 1 week
== END 2018-02-24 21:54 | disposition home or self-care (01) ==
LOC: FER 20:25
DX: S50.12XA Contusion of left forearm, initial encounter (principal); W18.09XA Striking against other object with subsequent fall, initial encounter; Y93.89 Activity, other specified; Y92.410 Unspecified street and highway as the place of occurrence of the external cause; I48.91 Unspecified atrial fibrillation; Z87.891 Personal history of nicotine dependence
CPT/HCPCS: 73070-TC-LT-FY; 99282-25

== ENCOUNTER 2022-02-01 11:01 | Inpatient (IN) | payer OTHER ==
[2022-02-01 11:45] VITALS: BMI 18.8
[2022-02-01] MEDS ORDERED: dilTIAZem HCL 50 MG/10 ML - 10 ML VIAL IVPUSH ONE ×2 (12:59→13:55)
[2022-02-01] MEDS ORDERED: dilTIAZem HCL 125 MG/25 ML - 25 ML VIAL ONE (13:01)
[2022-02-01 13:02] LABS: BASO % 0.5 % (0-2.0); EOS % 0.2 % (0-4.5); HEMATOCRIT 45.7 % (35.4-49); HEMOGLOBIN 15.5 GM/dL (11.7-16.9); LYMPH % 14.6 % (8-40); MCH 28.7 pg (25.7-33.7); MCHC 33.8 g/dl (32.0-35.9); MEAN PLT VOLUME 8.9 fl (7.5-11.1); MONO % 10.3 % (3.8-10.2); NEUT % 74.4 % (42.8-82.8); PLATELET COUNT 196 10^3/uL (134-434); RBC 5.38 M/mm3 (4.00-5.60); WHITE BLOOD COUNT 9.8 K/mm3 (4.0-10.0)
[2022-02-01 13:11] LABS: INR 1.07 (0.83-1.09); PROTHROMBIN TIME (PATIENT) 12.3 SEC (9.7-13.0)
[2022-02-01 13:14] LABS: ACTIVATED PTT 31.7 SECONDS (25.2-36.5)
[2022-02-01 13:33] LABS: CALCIUM 9.6 mg/dL (8.5-10.1)
[2022-02-01 13:34] LABS: MAGNESIUM 2.1 mg/dL (1.8-2.4)
[2022-02-01 13:37] LABS: CREATININE 1.2 mg/dL (0.55-1.3)
[2022-02-01 13:39] LABS: BILIRUBIN,TOTAL 0.7 mg/dL (0.2-1); TOT PROT 7.5 g/dl (6.4-8.2)
[2022-02-01] MEDS ORDERED: SODIUM CHLORIDE 0.9% 500 ML INFUS.BAG IV ONE (15:23)
[2022-02-01] MEDS ORDERED: dilTIAZem HCL 60 MG TABLET PO ONE (15:56)
[2022-02-01] MEDS ORDERED: dilTIAZem HCL 60 MG TABLET ONE (15:59)
[2022-02-01] MEDS ORDERED: ACETAMINOPHEN 325 MG TABLET (FP) PO PRN (16:50)
[2022-02-01 20:15] LABS: PH,URINE 5.5 (5.0-8.0); URINE APPEARANCE CLEAR; URINE BILIRUBIN NEGATIVE (NEGATIVE); URINE COLOR YELLOW; URINE GLUCOSE (UA) NEGATIVE (NEGATIVE); URINE KETONE TRACE (NEGATIVE); URINE LEUK ESTERASE NEGATIVE (NEGATIVE); URINE NITRITE NEGATIVE (NEGATIVE); URINE PROTEIN TRACE (NEGATIVE); URINE UROBILINOGEN 0.2 mg/dL (0.2-1.0)
[2022-02-01] MEDS ORDERED: APIXABAN 5 MG TABLET ONE (22:02)
[2022-02-01] MEDS ORDERED: oxyCODONE HCL 5 MG TABLET ONE (22:03)
[2022-02-01] MEDS: oxyCODONE HCL 5 MG TABLET PO PRN (22:06)
[2022-02-01] MEDS: APIXABAN 5 MG TABLET PO SCH (22:06)
[2022-02-02] MEDS ORDERED: METOPROLOL TARTRATE 5 MG/5 ML VIAL ONE (01:40)
[2022-02-02] MEDS: METOPROLOL TARTRATE 5 MG/5 ML VIAL IVPUSH PRN ×2 (01:45→05:45)
[2022-02-02] MEDS: oxyCODONE HCL 5 MG TABLET PO PRN ×2 (04:26→17:08)
[2022-02-02] MEDS ORDERED: dilTIAZem HCL 50 MG/10 ML - 10 ML VIAL IVPUSH ONE (05:05)
[2022-02-02] MEDS: LEVOTHYROXINE NA 25 MCG TABLET (FP) PO SCH (06:03)
[2022-02-02 07:23] LABS: BASO % 0.5 % (0-2.0); EOS % 1.6 % (0-4.5); HEMATOCRIT 38.9 % (35.4-49); HEMOGLOBIN 13.3 GM/dL (11.7-16.9); LYMPH % 23.7 % (8-40); MCH 28.7 pg (25.7-33.7); MCHC 34.3 g/dl (32.0-35.9); MEAN CELL VOLUME 83.9 fl (80-96); MEAN PLT VOLUME 8.5 fl (7.5-11.1); MONO % 8.6 % (3.8-10.2); NEUT % 65.6 % (42.8-82.8); PLATELET COUNT 183 10^3/uL (134-434); RBC 4.64 M/mm3 (4.00-5.60); RDW 14.5 % (11.9-15.9); WHITE BLOOD COUNT 10.4 K/mm3 (4.0-10.0)
[2022-02-02 07:42] LABS: ALBUMIN 3.6 g/dl (3.4-5.0); BLOOD UREA NITROGEN 17.8 mg/dL (7-18); CALCIUM 8.8 mg/dL (8.5-10.1)
[2022-02-02 07:45] LABS: CREATININE 0.9 mg/dL (0.55-1.3)
[2022-02-02 07:46] LABS: BILIRUBIN,TOTAL 0.9 mg/dL (0.2-1); TOT PROT 6.4 g/dl (6.4-8.2)
[2022-02-02] MEDS: APIXABAN 5 MG TABLET PO SCH ×2 (10:29→21:28)
[2022-02-02] MEDS: MULTIVITAMINS (DAILY MVI) TABLET (FP) PO SCH (10:29)
[2022-02-02] MEDS: oxyCODONE HCL 5 MG TABLET PO SCH (21:28)
[2022-02-03] MEDS: oxyCODONE HCL 5 MG TABLET PO SCH ×3 (06:11→21:47)
[2022-02-03] MEDS: LEVOTHYROXINE NA 25 MCG TABLET (FP) PO SCH (06:14)
[2022-02-03 07:22] LABS: BASO % 0.4 % (0-2.0); EOS % 2.4 % (0-4.5); HEMATOCRIT 37.1 % (35.4-49); LYMPH % 30.7 % (8-40); MCH 29.4 pg (25.7-33.7); MCHC 35.1 g/dl (32.0-35.9); MEAN CELL VOLUME 83.7 fl (80-96); MEAN PLT VOLUME 8.1 fl (7.5-11.1); MONO % 8.5 % (3.8-10.2); PLATELET COUNT 140 10^3/uL (134-434); RBC 4.43 M/mm3 (4.00-5.60); RDW 14.5 % (11.9-15.9); WHITE BLOOD COUNT 8.3 K/mm3 (4.0-10.0)
[2022-02-03 07:45] LABS: ALBUMIN 3.3 g/dl (3.4-5.0); CALCIUM 8.7 mg/dL (8.5-10.1)
[2022-02-03 07:46] LABS: BLOOD UREA NITROGEN 19.6 mg/dL (7-18); MAGNESIUM 1.6 mg/dL (1.8-2.4)
[2022-02-03 07:48] LABS: CREATININE 0.9 mg/dL (0.55-1.3)
[2022-02-03 07:50] LABS: BILIRUBIN,TOTAL 0.7 mg/dL (0.2-1); TOT PROT 5.9 g/dl (6.4-8.2)
[2022-02-03] MEDS: MULTIVITAMINS (DAILY MVI) TABLET (FP) PO SCH (09:44)
[2022-02-03] MEDS: APIXABAN 5 MG TABLET PO SCH ×2 (09:44→21:47)
[2022-02-03] MEDS ORDERED: MAGNESIUM SULF 50% (8.12 MEQ/2 ML-1 GM VIAL) IVPB ONE (14:37)
[2022-02-04] MEDS: LEVOTHYROXINE NA 50 MCG TABLET (FP) PO SCH ×2 (05:49→06:19)
[2022-02-04] MEDS: oxyCODONE HCL 5 MG TABLET PO SCH ×3 (05:50→21:33)
[2022-02-04 06:56] LABS: BASO % 0.4 % (0-2.0); EOS % 2.2 % (0-4.5); HEMATOCRIT 36.2 % (35.4-49); HEMOGLOBIN 12.5 GM/dL (11.7-16.9); LYMPH % 26.5 % (8-40); MCH 29.1 pg (25.7-33.7); MCHC 34.7 g/dl (32.0-35.9); MEAN PLT VOLUME 8.5 fl (7.5-11.1); MONO % 8.5 % (3.8-10.2); NEUT % 62.4 % (42.8-82.8); PLATELET COUNT 156 10^3/uL (134-434); RBC 4.31 M/mm3 (4.00-5.60); RDW 14.8 % (11.9-15.9)
[2022-02-04 07:15] LABS: CALCIUM 8.2 mg/dL (8.5-10.1)
[2022-02-04 07:16] LABS: ALBUMIN 3.1 g/dl (3.4-5.0); BLOOD UREA NITROGEN 16.6 mg/dL (7-18); MAGNESIUM 2.1 mg/dL (1.8-2.4)
[2022-02-04 07:19] LABS: CREATININE 0.7 mg/dL (0.55-1.3)
[2022-02-04 07:20] LABS: BILIRUBIN,TOTAL 0.6 mg/dL (0.2-1)
[2022-02-04 07:21] LABS: TOT PROT 5.8 g/dl (6.4-8.2)
[2022-02-04] MEDS: LOSARTAN POTASSIUM 50 MG TABLET PO SCH (09:19)
[2022-02-04] MEDS: MULTIVITAMINS (DAILY MVI) TABLET (FP) PO SCH (09:19)
[2022-02-04] MEDS: APIXABAN 5 MG TABLET PO SCH ×2 (09:20→21:35)
[2022-02-05] MEDS: METOPROLOL TARTRATE 5 MG/5 ML VIAL IVPUSH PRN ×3 (02:11→18:03)
[2022-02-05] MEDS: oxyCODONE HCL 5 MG TABLET PO SCH ×3 (06:00→21:31)
[2022-02-05] MEDS: LEVOTHYROXINE NA 50 MCG TABLET (FP) PO SCH (06:00)
[2022-02-05 07:36] LABS: BASO % 0.4 % (0-2.0); EOS % 1.8 % (0-4.5); HEMATOCRIT 38.6 % (35.4-49); HEMOGLOBIN 13.3 GM/dL (11.7-16.9); LYMPH % 27.8 % (8-40); MCH 28.8 pg (25.7-33.7); MCHC 34.5 g/dl (32.0-35.9); MEAN CELL VOLUME 83.4 fl (80-96); MEAN PLT VOLUME 9.2 fl (7.5-11.1); MONO % 9.8 % (3.8-10.2); NEUT % 60.2 % (42.8-82.8); PLATELET COUNT 174 10^3/uL (134-434); RBC 4.63 M/mm3 (4.00-5.60); RDW 14.2 % (11.9-15.9); WHITE BLOOD COUNT 9.8 K/mm3 (4.0-10.0)
[2022-02-05 07:51] LABS: CALCIUM 8.8 mg/dL (8.5-10.1)
[2022-02-05 07:52] LABS: ALBUMIN 3.1 g/dl (3.4-5.0); BLOOD UREA NITROGEN 19.2 mg/dL (7-18); MAGNESIUM 1.8 mg/dL (1.8-2.4)
[2022-02-05 07:54] LABS: CREATININE 0.8 mg/dL (0.55-1.3)
[2022-02-05 07:57] LABS: BILIRUBIN,TOTAL 0.5 mg/dL (0.2-1)
[2022-02-05] MEDS: APIXABAN 5 MG TABLET PO SCH ×2 (10:21→21:40)
[2022-02-05] MEDS: MULTIVITAMINS (DAILY MVI) TABLET (FP) PO SCH (10:21)
[2022-02-05] MEDS: LOSARTAN POTASSIUM 50 MG TABLET PO SCH (10:21)
[2022-02-05] MEDS ORDERED: metoPROLOL SUCCINATE 25 MG TAB.SR.24H (FP) PO ONE (12:04)
[2022-02-05] MEDS ORDERED: metoPROLOL SUCCINATE 25 MG TAB.SR.24H (FP) PO SCH (12:05)
[2022-02-06] MEDS: oxyCODONE HCL 5 MG TABLET PO SCH ×3 (05:52→21:53)
[2022-02-06] MEDS: LEVOTHYROXINE NA 50 MCG TABLET (FP) PO SCH (05:59)
[2022-02-06 08:02] LABS: BASO % 0.6 % (0-2.0); EOS % 1.5 % (0-4.5); HEMATOCRIT 37.9 % (35.4-49); HEMOGLOBIN 13.5 GM/dL (11.7-16.9); LYMPH % 22.3 % (8-40); MCH 29.7 pg (25.7-33.7); MCHC 35.6 g/dl (32.0-35.9); MEAN CELL VOLUME 83.4 fl (80-96); MONO % 8.5 % (3.8-10.2); NEUT % 67.1 % (42.8-82.8); PLATELET COUNT 166 10^3/uL (134-434); RBC 4.54 M/mm3 (4.00-5.60); RDW 14.2 % (11.9-15.9); WHITE BLOOD COUNT 10.5 K/mm3 (4.0-10.0)
[2022-02-06 08:26] LABS: BLOOD UREA NITROGEN 18.5 mg/dL (7-18); CALCIUM 8.7 mg/dL (8.5-10.1); MAGNESIUM 1.8 mg/dL (1.8-2.4)
[2022-02-06 08:29] LABS: CREATININE 0.7 mg/dL (0.55-1.3); PHOSPHOROUS 3.3 mg/dL (2.5-4.9)
[2022-02-06] MEDS: MULTIVITAMINS (DAILY MVI) TABLET (FP) PO SCH (09:34)
[2022-02-06] MEDS: APIXABAN 5 MG TABLET PO SCH ×2 (09:34→21:53)
[2022-02-06] MEDS: LOSARTAN POTASSIUM 50 MG TABLET PO SCH (09:34)
[2022-02-07] MEDS: METOPROLOL TARTRATE 5 MG/5 ML VIAL IVPUSH PRN ×2 (00:45→07:44)
[2022-02-07] MEDS: LEVOTHYROXINE NA 50 MCG TABLET (FP) PO SCH (06:15)
[2022-02-07] MEDS: oxyCODONE HCL 5 MG TABLET PO SCH ×3 (06:15→22:43)
[2022-02-07 08:28] LABS: BASO % 0.8 % (0-2.0); EOS % 2.3 % (0-4.5); HEMOGLOBIN 13.6 GM/dL (11.7-16.9); LYMPH % 23.5 % (8-40); MCH 29.3 pg (25.7-33.7); MCHC 34.8 g/dl (32.0-35.9); MEAN CELL VOLUME 84.3 fl (80-96); MEAN PLT VOLUME 9.1 fl (7.5-11.1); MONO % 10.3 % (3.8-10.2); NEUT % 63.1 % (42.8-82.8); PLATELET COUNT 173 10^3/uL (134-434); RBC 4.62 M/mm3 (4.00-5.60); RDW 14.4 % (11.9-15.9); WHITE BLOOD COUNT 7.9 K/mm3 (4.0-10.0)
[2022-02-07 08:43] LABS: BLOOD UREA NITROGEN 18.4 mg/dL (7-18)
[2022-02-07 08:45] LABS: MAGNESIUM 1.8 mg/dL (1.8-2.4)
[2022-02-07 08:47] LABS: CREATININE 0.7 mg/dL (0.55-1.3); PHOSPHOROUS 3.2 mg/dL (2.5-4.9)
[2022-02-07] MEDS ORDERED: LOSARTAN POTASSIUM 50 MG TABLET PO SCH (09:13)
[2022-02-07] MEDS ORDERED: SODIUM CHLORIDE 500 ML IV STA (09:18)
[2022-02-07] MEDS: MULTIVITAMINS (DAILY MVI) TABLET (FP) PO SCH (09:57)
[2022-02-07] MEDS: APIXABAN 5 MG TABLET PO SCH ×2 (09:57→22:43)
[2022-02-08] MEDS: oxyCODONE HCL 5 MG TABLET PO SCH ×3 (06:28→21:27)
[2022-02-08] MEDS: LEVOTHYROXINE NA 50 MCG TABLET (FP) PO SCH (06:28)
[2022-02-08 07:20] LABS: BASO % 0.7 % (0-2.0); EOS % 2.2 % (0-4.5); HEMATOCRIT 37.8 % (35.4-49); LYMPH % 29.5 % (8-40); MCH 28.4 pg (25.7-33.7); MCHC 34.2 g/dl (32.0-35.9); MEAN CELL VOLUME 82.9 fl (80-96); MEAN PLT VOLUME 9.1 fl (7.5-11.1); MONO % 10.7 % (3.8-10.2); NEUT % 56.9 % (42.8-82.8); PLATELET COUNT 199 10^3/uL (134-434); RBC 4.56 M/mm3 (4.00-5.60); RDW 14.4 % (11.9-15.9); WHITE BLOOD COUNT 7.2 K/mm3 (4.0-10.0)
[2022-02-08 07:36] LABS: BLOOD UREA NITROGEN 15.8 mg/dL (7-18); CALCIUM 8.9 mg/dL (8.5-10.1)
[2022-02-08 07:37] LABS: MAGNESIUM 1.6 mg/dL (1.8-2.4)
[2022-02-08 07:39] LABS: PHOSPHOROUS 3.3 mg/dL (2.5-4.9)
[2022-02-08 07:41] LABS: CREATININE 0.7 mg/dL (0.55-1.3)
[2022-02-08] MEDS ORDERED: MAGNESIUM 2GM/50ML STERILE WATER IVPB IVPB ONE (10:00)
[2022-02-08] MEDS: MULTIVITAMINS (DAILY MVI) TABLET (FP) PO SCH (10:15)
[2022-02-08] MEDS: APIXABAN 5 MG TABLET PO SCH ×2 (10:15→21:26)
[2022-02-08] MEDS: LOSARTAN POTASSIUM 25 MG TABLET PO SCH (10:15)
[2022-02-09] MEDS: oxyCODONE HCL 5 MG TABLET PO SCH ×2 (06:39→13:44)
[2022-02-09] MEDS: LEVOTHYROXINE NA 50 MCG TABLET (FP) PO SCH (06:39)
[2022-02-09 07:37] LABS: BASO % 0.7 % (0-2.0); EOS % 1.8 % (0-4.5); HEMATOCRIT 38.3 % (35.4-49); LYMPH % 32.3 % (8-40); MCH 28.5 pg (25.7-33.7); MEAN CELL VOLUME 83.8 fl (80-96); MEAN PLT VOLUME 9.1 fl (7.5-11.1); MONO % 10.1 % (3.8-10.2); NEUT % 55.1 % (42.8-82.8); PLATELET COUNT 205 10^3/uL (134-434); RBC 4.57 M/mm3 (4.00-5.60); RDW 14.5 % (11.9-15.9); WHITE BLOOD COUNT 7.4 K/mm3 (4.0-10.0)
[2022-02-09 08:01] LABS: CALCIUM 9.4 mg/dL (8.5-10.1)
[2022-02-09 08:02] LABS: BLOOD UREA NITROGEN 18.6 mg/dL (7-18); MAGNESIUM 1.9 mg/dL (1.8-2.4)
[2022-02-09 08:05] LABS: CREATININE 0.7 mg/dL (0.55-1.3); PHOSPHOROUS 3.5 mg/dL (2.5-4.9)
[2022-02-09] MEDS: APIXABAN 5 MG TABLET PO SCH (09:50)
[2022-02-09] MEDS: LOSARTAN POTASSIUM 25 MG TABLET PO SCH (09:50)
[2022-02-09] MEDS: MULTIVITAMINS (DAILY MVI) TABLET (FP) PO SCH (09:50)
[2022-02-09 11:14] VITALS: RESP 18
[2022-02-09 15:30] VITALS: BP 115/61; PULSE 62; TEMP 99.5
== END 2022-02-09 18:17 | disposition home health service (06) | DRG 308 ==
LOC: JER 11:01 → JERBED 15:54 → J4W 02-02 02:43
PROVIDERS: ADMIT Internal Medicine; ATTEND Nurse Practitioner Acute Care
DX: I48.19 Other persistent atrial fibrillation (principal); E43 Unspecified severe protein-calorie malnutrition; Z68.1 Body mass index [BMI] 19.9 or less, adult; I48.0 Paroxysmal atrial fibrillation; Z79.01 Long term (current) use of anticoagulants; R29.6 Repeated falls; E03.9 Hypothyroidism, unspecified; F09 Unspecified mental disorder due to known physiological condition; E83.42 Hypomagnesemia; G89.29 Other chronic pain; I51.89 Other ill-defined heart diseases
CPT/HCPCS: 36415; 70450-TC; 70486-TC; 71045-TC-FY; 72125-TC; 72128-TC; 72131-TC; 72170-TC-FY; 80048; 80053; 80061; 81003; 82550; 82553; 83735; 84100; 84439; 84443; 84484; 85025; 85610; 85730; 86850; 86900; 86901; 87086; 93005; 93010; 93306-TC; 97116-GP; 97161-GP; 99285-25; C9803-CS; U0003; U0005

== ENCOUNTER 2024-07-09 06:59 | Inpatient (IN) | payer OTHER ==
[2024-07-09 07:53] VITALS: BMI 19.6
[2024-07-09 08:36] LABS: INR 1.18 (0.83-1.09); PROTHROMBIN TIME (PATIENT) 12.9 SEC (9.7-13.0)
[2024-07-09 08:37] LABS: ABSOLUTE IMMATURE GRANULOCYTES 0.05 x10^3/uL (0.0-0.031); BASOPHILS # 0.05 x10^3/uL (0.01-0.08); EOSINOPHIL % 0.9 % (0.8-7.0); EOSINOPHILS # 0.09 x10^3/uL (0.04-0.54); HEMATOCRIT 44.3 % (40.1-51.0); HEMOGLOBIN 14.7 g/dL (13.7-17.5); MCHC 33.2 g/dl (32.3-36.5); MEAN CELL VOLUME 85.4 fl (79.0-92.2); MEAN PLT VOLUME 11.4 fl (9.4-12.4); MONOCYTE # 0.84 x10^3/uL (0.30-0.82); MONOCYTE % 8.5 % (5.3-12.2); PLATELET COUNT # 198 x10^3/uL (163-337); RDW 13.6 % (12.2-16.6)
[2024-07-09 08:39] LABS: ACTIVATED PTT 35.5 SECONDS (25.2-36.5)
[2024-07-09 08:47] LABS: POTASSIUM 4.2 mmol/L (3.5-5.1)
[2024-07-09 08:49] LABS: CALCIUM 9.1 mg/dL (8.5-10.1)
[2024-07-09 08:50] LABS: ALBUMIN 3.5 g/dl (3.4-5.0); BLOOD UREA NITROGEN 16.1 mg/dL (7-18); MAGNESIUM 1.8 mg/dL (1.8-2.4)
[2024-07-09 08:54] LABS: BILIRUBIN,TOTAL 1.2 mg/dL (0.2-1); TOT PROT 6.6 g/dl (6.4-8.2)
[2024-07-09 09:25] LABS: PH,URINE 5.5 (5.0-8.0); URINE APPEARANCE CLEAR; URINE BILIRUBIN 1+ (NEGATIVE); URINE COLOR DK YELLOW; URINE GLUCOSE (UA) NEGATIVE (NEGATIVE); URINE KETONE TRACE (NEGATIVE); URINE LEUK ESTERASE NEGATIVE (NEGATIVE); URINE NITRITE NEGATIVE (NEGATIVE); URINE PROTEIN TRACE (NEGATIVE)
[2024-07-09] MEDS ORDERED: metoPROLOL SUCCINATE 25 MG TAB.SR.24H (FP) PO ONE (09:28)
[2024-07-09] MEDS ORDERED: ACETAMINOPHEN INJECTION 100 ML ONE (09:59)
[2024-07-09] MEDS ORDERED: oxyCODONE HCL 5 MG TABLET ONE (09:59)
[2024-07-09] MEDS: oxyCODONE HCL 5 MG TABLET PO ONE (10:06)
[2024-07-09] MEDS: ACETAMINOPHEN 1000 MG/100 ML BAG IVPB ONE (10:06)
[2024-07-09] MEDS: oxyCODONE HCL 5 MG TABLET PO PRN (19:55)
[2024-07-09] MEDS: APIXABAN 5 MG TABLET PO SCH (21:26)
[2024-07-09] MEDS: DOCUSATE SODIUM 100 MG CAPSULE (FP) PO SCH (21:26)
[2024-07-09] MEDS: POLYETHYLENE GLYCOL (HEALTHYLAX) 3350 17 GM PACKET PO SCH (21:26)
[2024-07-09] MEDS ORDERED: metoPROLOL SUCCINATE 25 MG TAB.SR.24H (FP) PO SCH (22:00)
[2024-07-10] MEDS ORDERED: ACETAMINOPHEN 1000 MG/100 ML BAG IVPB PRN (00:11)
[2024-07-10] MEDS: METOPROLOL TARTRATE 5 MG/5 ML VIAL IVPUSH ONE ×2 (00:21→00:23)
[2024-07-10] MEDS: LEVOTHYROXINE NA 25 MCG TABLET (FP) PO SCH (06:47)
[2024-07-10 06:57] LABS: HEMATOCRIT 39.6 % (40.1-51.0); HEMOGLOBIN 13.5 g/dL (13.7-17.5); MCHC 34.1 g/dl (32.3-36.5); MEAN PLT VOLUME 10.8 fl (9.4-12.4); PLATELET COUNT # 165 x10^3/uL (163-337); RDW 13.6 % (12.2-16.6)
[2024-07-10 07:25] LABS: POTASSIUM 3.5 mmol/L (3.5-5.1)
[2024-07-10 07:28] LABS: BLOOD UREA NITROGEN 19.9 mg/dL (7-18); CALCIUM 8.6 mg/dL (8.5-10.1)
[2024-07-10 07:29] LABS: MAGNESIUM 1.8 mg/dL (1.8-2.4)
[2024-07-10 07:31] LABS: CREATININE 0.8 mg/dL (0.55-1.3); PHOSPHOROUS 2.8 mg/dL (2.5-4.9)
[2024-07-10] MEDS ORDERED: ENOXAPARIN NA (PORCINE) 40 MG/0.4 ML DISP.SYRIN SQ SCH (10:00)
[2024-07-10] MEDS ORDERED: LOSARTAN POTASSIUM 25 MG TABLET PO SCH (10:00)
[2024-07-10] MEDS: LOSARTAN POTASSIUM 25 MG TABLET PO SCH (10:57)
[2024-07-10] MEDS: ROSUVASTATIN CA 20 MG TABLET PO SCH (21:51)
[2024-07-11 07:49] LABS: HEMATOCRIT 41.3 % (40.1-51.0); HEMOGLOBIN 13.8 g/dL (13.7-17.5); MCHC 33.4 g/dl (32.3-36.5); MEAN CELL VOLUME 85.9 fl (79.0-92.2); MEAN PLT VOLUME 11.4 fl (9.4-12.4); PLATELET COUNT # 171 x10^3/uL (163-337); RDW 13.8 % (12.2-16.6)
[2024-07-11 08:14] LABS: POTASSIUM 3.9 mmol/L (3.5-5.1)
[2024-07-11 08:28] LABS: ALBUMIN 3.2 g/dl (3.4-5.0); BLOOD UREA NITROGEN 21.3 mg/dL (7-18); CALCIUM 8.9 mg/dL (8.5-10.1); MAGNESIUM 1.8 mg/dL (1.8-2.4)
[2024-07-11 08:32] LABS: CREATININE 0.9 mg/dL (0.55-1.3); PHOSPHOROUS 2.7 mg/dL (2.5-4.9)
[2024-07-11 08:33] LABS: TOT PROT 6.1 g/dl (6.4-8.2)
[2024-07-11] MEDS: ASPIRIN COATED 81 MG TABLET.EC PO SCH (09:36)
[2024-07-12 08:00] LABS: POTASSIUM 3.8 mmol/L (3.5-5.1)
[2024-07-12 08:08] LABS: ALBUMIN 3.2 g/dl (3.4-5.0); BLOOD UREA NITROGEN 22.5 mg/dL (7-18)
[2024-07-12 08:09] LABS: BILIRUBIN,TOTAL 0.8 mg/dL (0.2-1); CALCIUM 8.7 mg/dL (8.5-10.1)
[2024-07-12 08:10] LABS: MAGNESIUM 1.6 mg/dL (1.8-2.4)
[2024-07-12 08:11] LABS: CREATININE 0.9 mg/dL (0.55-1.3); PHOSPHOROUS 3.2 mg/dL (2.5-4.9)
[2024-07-12 09:53] LABS: HEMATOCRIT 40.4 % (40.1-51.0); HEMOGLOBIN 13.8 g/dL (13.7-17.5); MCHC 34.2 g/dl (32.3-36.5); MEAN CELL VOLUME 87.6 fl (79.0-92.2); MEAN PLT VOLUME 11.4 fl (9.4-12.4); PLATELET COUNT # 152 x10^3/uL (163-337); RDW 13.7 % (12.2-16.6)
[2024-07-12] MEDS: MAGNESIUM SULF 50% (8.12 MEQ/2 ML-1 GM VIAL) IVPB ONE (13:59)
[2024-07-12 16:11] VITALS: BP 116/85; PULSE 79; RESP 18; TEMP 97.7
== END 2024-07-12 16:11 | DRG 312 ==
LOC: JER 06:59 → JERBED 12:21 → OBSVTOIN 13:00 → J4W 14:48
PROVIDERS: ADMIT Internal Medicine; ATTEND Internal Medicine
DX: R55 Syncope and collapse (principal); E43 Unspecified severe protein-calorie malnutrition; Z68.1 Body mass index [BMI] 19.9 or less, adult; I48.91 Unspecified atrial fibrillation; I10 Essential (primary) hypertension; E03.9 Hypothyroidism, unspecified; M54.50 Low back pain, unspecified; I65.22 Occlusion and stenosis of left carotid artery; I65.21 Occlusion and stenosis of right carotid artery; W18.30XA Fall on same level, unspecified, initial encounter; Y93.9 Activity, unspecified; Y92.091 Bathroom in other non-institutional residence as the place of occurrence of the external cause; Y99.9 Unspecified external cause status
CPT/HCPCS: 0241U-QW; 36415; 70450-TC; 71045-TC-FY; 72125-TC; 72128-TC; 72131-TC; 80048; 80053; 81003; 82607; 82746; 82962; 83735; 84100; 84439; 84443; 84484; 85025; 85027; 85610; 85730; 87086; 93306-TC; 93880-TC; 97116-GP; 97162-GP; 99285-25; G0378; J0131